=== PATIENT | male | born 1975 | race Caucasian/White ===

== ENCOUNTER → 2017-03-29 | Emergency (ER) | payer MEDICAID ==
[~2017-03-29] VITALS: Ht 188 cm; Wt 108.9 kg
[~2017-03-29] MED LIST: ADVIL200 MG OR; ADVIL200 MG PO; ATIVAN0.5 MG PO; BROMFED DM COU473 ML PO; CIPRO 500MG TA500 MG PO; CLARITIN 10MG T10 MG PO; DOXYCYCLINE HY100 M4 PO; DOXYCYCLINE100 M6 PO; GEMFIBROZIL600 MG PO; IBUPROFEN800 MG PO; LORTAB 5/500 501 TAB PO; MECLIZINE12.5 MG PO; MECLIZINE25 MG PO; MONODOX100 MG PO; NOMEDS; PRILOSEC40 MG PO; TRAMADOL50 M1 PO; ULTRAM50 MG PO
[2017-03-29 10:18] VITALS: BP 135/99
--- NOTE | 2017-03-29 10:27 | Emergency Room Report ---
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 N Clinical Suspician of Infection? N Mental Status: 1 - Regular (Normal Baseline) Sepsis Risk:Low Sepsis Risk Have you (or family members/close friends) recently traveled outside the [place]? N If Yes, where/when: Have you had exposure to infectious disease within the past month? N TB? Other? Specify: Comment The patient complains of a 3 day history of LEFT testicular pain and swelling. He has had this previously. He says he was seen in the emergency room, followed up with his primary care doctor, and was referred to a specialist, presumably a urologist. He was diagnosed with epididymitis. He has had a previous mastectomy and was told that the scar tissue from that would periodically become inflamed. He has exactly the same symptoms now. No fever. No trauma. No difficulty urinating. ALLERGIES Coded Allergies: Penicillins (03/29/17) amoxicillin (03/29/17) Home Medications Active Scripts DOXYCYCLINE HYCLATE (Doxycycline Hyclate) 100 MG PO BID #20 CAP Prov: 12/28/14 Tramadol Hcl (Ultram 50MG) 50 MG PO Q6HP PRN pain #12 TAB Prov: 12/28/14 Reported Medications Omeprazole (Prilosec 40mg Cap) 40 MG PO DAILY Loratadine (Claritin 10MG) 10 MG PO DAILY MECLIZINE HYDROCHLORIDE (Meclizine HCl) 12.5 MG PO BID MISCELLANEOUS (UNKNOWN MEDICATION) 2 TAB PO TIDP PRN CONGESTION/SINUS History Medical History General CAD? No Angina: No MO: No Hypertension? No Hyperlipidemia? No CHF? No COPD? No Asthma? No Anemia? No Hernia? Yes Thyroid Problems? No Hypothyroidism? No CVA? No Seizures? No Diabetes? No End Stage Renal Disease? No UTI? No Stones? No GB Disease: No Nephritic Syndrome? No Asplenia? No Hepatitis? No Sickle Cell Disease? No Arthritis? Yes Cataracts? No Glaucoma? No MRSA? No TB? No Cancer? 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 Physical Exam Vital Signs Vital Signs Date Time Temp Pulse Resp B/P Pulse O2 O2 Flow FiO2 Ox Delivery Rate 03/29 1055 98.4 88 18 135/99 97 03/29 1051 18 03/29 1018 98.4 88 18 135/99 97 General Appearance mild distress Respiratory Status No: respiratory distress. Cardiovascular regular rate/rhythm Male Genitalia tenderness of the LEFT testicle, posterior greater than anterior. Appears in normal position, lie is lower than the RIGHT. Not elevated. No visible or palpable edema or erythema. No hernia. No palpable mass. Neurologic alert Medical Decision Making LABS/Meds/Orders Pt receiving controlled substance in ED? Yes [place] was queried for this patient? No Reason not queried - emergent pt cond=no time Results/Orders Laboratory Tests 03/29/17 1027: Urine Color Cancelled, Urine Appearance Cancelled, Urine pH Cancelled, Ur Specific [place] Cancelled Current Medication Orders Sig/Mary Start time Last Medication Dose Route Stop Time Status Admin Doxycycline Hyclate 0 .STK-MED ONE 03/29 1049 DC PO Ibuprofen 0 .STK-MED ONE 03/29 1048 DC PO Tramadol HCl 0 .STK-MED ONE 03/29 1048 DC .ROUTE Doxycycline Hyclate 100 MG ONCE ONE 03/29 1045 DC 03/29 PO 03/29 1046 1050 Ibuprofen 800 MG ONCE ONE 03/29 104 DC 03/29 PO 03/29 1046 1051 Tramadol HCl 50 MG ONCE ONE 03/29 1045 DC 03/29 PO 03/29 1046 1051 Progress - 10:40 AM: I recommended ultrasound of the testicle to rule out torsion, IV antibiotics, IV pain medication and anti-inflammatories. The patient does not want to spend time in the emergency room, he wants to be discharged as soon as possible to take care of his daughter. He says he has had exactly the same symptoms in the past and is comfortable that it is a recurrence of his previous condition. He does not want a workup. He does not want an IV or injections. He prefers oral medications so that he can be discharged quickly. On his last visit here for this problem in 2014 he was treated with doxycycline and tramadol and he prefers these medications. Departure Departure Disposition DC Home or Self Care(routine) Clinical Impression Primary Impression: Epididymitis Condition STABLE Patient Instructions DI for Epididymitis Additional Instructions Call your primary care physician on Friday to arrange a follow-up appointment. Return to the emergency room if worsening pain, swelling, fevers, or inability to urinate. Prescriptions Current Visit Scripts Doxycycline Hyclate (Vibramycin) 100 MG PO BID #20 CAP TRAMADOL HCL (Tramadol) 50 MG PO Q6HP PRN pain #12 TAB Ibuprofen (Ibuprofen 800MG) 800 MG PO Q8HP PRN pain #15 TAB ED Critical Care Critical Care No at [id number]
--- OUTSIDE RECORDS SUMMARY | 2017-04-04 13:00 | External Medical Summary Rpt | CCD ---
Author Author , ROXANN Organization ROXANN Address Unknown Phone Care Team Providers Care Infant Teacher Name Role Phone TITI HAN, TITI HAN Unavailable Unavailable [facility] ASHWIN ELLIOTT Unavailable Unavailable ASHWIN ELLIOTT Unavailable Unavailable [facility] Unavailable [facility] JIM ALL, JIM ALL Unavailable Unavailable HILL NANDINI, HILL Unavailable Unavailable NANDINI CASE JUS, CASE JUS Unavailable Unavailable [facility], Unavailable Unavailable [facility], Unavailable Unavailable [facility] BELCHER, BELCHER Unavailable Unavailable BELCHER TEDDY, Unavailable Unavailable BELCHER TEDDY JAZZ, JAZZ Unavailable Unavailable JAZZ CAR, JAZZ CAR Unavailable Unavailable ALEXANDRA SAMANTHA, Unavailable Unavailable ALEXANDRA SAMANTHA TEJEDA-RIOS NANDINI, Unavailable Unavailable TEJEDA-RIOS NANDINI [facility] Unavailable Unavailable HOSPITA, [facility] Unavailable Unavailable HOSPITA, [facility], Unavailable Unavailable [facility] DYLAN RHO, DYLAN Unavailable Unavailable [facility] Unavailable Unavailable INC, [facility] QUIGLEY, QUIGLEY Unavailable Unavailable QUIGLEY, QUIGLEY Unavailable Unavailable QUIGLEY DEVON, QUIGLEY DEVON Unavailable Unavailable QUIGLEY DEVON, QUIGLEY DEVON Unavailable Unavailable [facility] Un[facility] Unavailable GROUP PS, [facility] Un[facility] Un[facility] KERN LAR, KERN LAR Unavailable Unavailable KERN LORENA LAR, Unavailable Unavailable ANABEL CARRILLO LAR India Connors MD, Unavailable Unavailable India Connors MD [facility] Unavailable Unavailable PRACTITIONER [facility], [facility] JOSE F ANT, JOSE F ANT Unavailable Unavailable CHAPARRITA BET, CHAPARRITA Unavailable Unavailable BET FERRER GLORIA, FERRER Unavailable Unavailable GLORIA MUGLESTON HARLEY, Unavailable Unavailable [facility]UGLESTON HAR[facility] Un[facility], Unavailable Unavailable [facility], Unavailable Unavailable [facility] MALACHI HEATHER, MALACHI HEATHER Unavailable Unavailable SCALF PAT, SCALF PAT Unavailable Unavailable MARAHY JULIA, SHADREAY Unavailable Unavailable JULIA DREW JULIA, SHADREAY Unavailable Unavailable JULIA GOFF GOFF Unavailable Unavailable GOFF TRISHA, GOFF TRISHA Unavailable Unavailable CONNOR MOULTONELL Unavailable Unavailable OBIE SEPULVEDA, OBIE Unavailable Unavailable COCO VERGARA, Unavailable Unavailable WEI VERGARA [facility] Unavailable Unavailable LLC, [facility] Unavailable Unavailable HOSPITALS, [facility], Unavailable Unavailable [facility] THAD TREJO, THAD Unavailable Unavailable NEIL TREJO, THAD Unavailable Unavailable NEIL ADRIAN II NEIL, NGUYỄN Unavailable Unavailable II NEIL Purpose Continuity of Care Document - 09-10-2012 through 2016 Problems Code Diagnosis DOS Provider Status [id number] BENIGN 02-06-2017 [facility] UNSPECIFIED EAR R270 ATAXIA 02-06-2017 [facility] R42 DIZZINESS 02-06-2017 [place] [facility] G[facility] R51 HEADACHE 02-06-2017 [facility] M792 NEURALGIA 11-19-2016 [facility] NURSE AND PRACTITIONE NEURITIS R GR UNSPECIFIED N432 OTHER 10-29-2016 [facility] [place] [facility] N4340 SPERMATOCEL 10-29-2016 [facility] OF [facility]TI[facility] EPIDIDYMIS HOSPITA UNSPECIFIED N5082 SCROTAL 10-29-2016 [facility] [id number] TESTICULAR 10-08-2016 [facility] NURSE PAIN PRACTITIONE UNSPECIFIED R GR N5089 OTHER 10-08-2016 [facility] NURSE SPECIFIED PRACTITIONE DISORDERS R GR OF MALE GENITAL ORGANS N509 DISORDER OF 10-08-2016 [facility] NURSE MALE PRACTITIONE GENITAL R GR ORGANS UNSPECIFIED R109 UNSPECIFIED 10-08-2016 [facility] NURSE ABDOMINAL PRACTITIONE PAIN R GR T148 OTHER 10-08-2016 [facility] NURSE INJURY OF PRACTITIONE UNSPECIFIED R GR BODY REGION Z789 OTHER 10-08-2016 [facility] NURSE SPECIFIED PRACTITIONE HEALTH R GR STATUS [id number] MIGRAINE 10-02-2016 [place] [facility] NOT SERV INTRACT W/O FOUNDATION STAT MIGRAINOSUS [id number] CHRONIC 10-02-2016 [place] [facility] SERV E HEADACHE FOUNDATION NOT INTRACTABLE H6693 OTITIS 08-22-2016 [facility] NURSE MEDIA PRACTITIONE UNSPECIFIED R GR BILATERAL M542 CERVICALGIA 08-22-2016 [facility] NURSE PRACTITIONE R GR J209 ACUTE 06-27-2016 [facility] NURSE BRONCHITIS PRACTITIONE UNSPECIFIED R GR H524 PRESBYOPIA 06-04-2016 [facility] [id number] OTH 04-03-2016 [place] [facility] SERV NOT INTRACT FOUNDATION W/O STATUS MIGRAINOSUS I10 ESSENTIAL 03-21-2016 [facility] NURSE PRIMARY PRACTITIONE HYPERTENSIO R GR N K219 GASTRO-ESOP 12-28-2015 [facility] NURSE H REFLUX PRACTITIONE DISEASE R GR WITHOUT ESOPHAGITIS N508 OTHER 12-28-2015 [facility] NURSE SPECIFIED PRACTITIONE DISORDERS R GR OF MALE GENITAL ORGANS T26150 PAIN IN 11-06-2015 [facility] R079 CHEST PAIN 11-06-2015 [facility] UNSPECIFIED COMM[facility]TIY HOSPITA [id number] PAIN IN 09-29-2015 [facility] NURSE LEFT UPPER PRACTITIONE ARM R GR L240 IRRITANT 09-05-2015 [facility] NURSE CONTACT PRACTITIONE DERMATITIS R GR DUE TO DETERGENTS J0190 ACUTE 08-01-2015 [facility] NURSE SINUSITIS PRACTITIONE UNSPECIFIED R GR L90230L STRAIN 08-01-2015 [facility] NURSE MUSCLE PRACTITIONE FASCIA & R GR TENDON LOW BACK INITIAL H6093 UNSPECIFIED 05-26-2015 [place] [facility] BILATERAL 99754 ATROPHIC 03-15-2015 [facility] WITHOUT MENTION OF HEMORRHAGE 5781 BLOOD IN 03-15-2015 [place] [address] ABDOMINAL 03-15-2015 [place] PA[facility], ANESTHESIA UNSPECIFIED GROUP PS SITE 13880 OTHER 03-13-2015 [facility] FATIGUE 2662 OTHER 03-01-2015 [facility] NURSE B-COMPLEX PRACTITIONE DEFICIENCIE R GR S 6089 UNSPECIFIED 02-08-2015 [facility] OF MALE GENITAL ORGANS 7804 DIZZINESS 02-08-2015 [facility] V5869 LONG-TERM 02-08-2015 [facility] USE OF OTHER MEDICATIONS 63731 UNSPECIFIED 12-28-2014 ASHWIN Owen ORCHITIS AND EPIDIDYMITI S 15443 EDEMA OF 12-28-2014 [place] [facility] IMAGING ASS ORGANS 09569 OTHER 12-28-2014 [place] SPECIFIED MEDICAL DISORDER OF IMAGING ASS MALE GENITAL ORGANS 3484 COMPRESSION 12-21-2014 [facility] 08485 BENIGN 12-21-2014 [facility] PAROXYSMAL [facility] POSITIONAL MEDICAL [facility] 7820 DISTURBANCE 12-16-2014 [facility] 3674 PRESBYOPIA 12-13-2014 [facility] DEVON 3314 OBSTRUCTIVE 11-29-2014 [facility]DR[facility]EPHAL [facility] 7812 ABNORMALITY 11-29-2014 [facility] V571 OTHER 11-10-2014 [facility] TH[facility] 25259 CHEST PAIN 10-28-2014 [facility] [place] UNSPECIFIED RADIOLOGY 3688 OTHER 09-07-2014 [facility] SPECIFIED [facility]TI[facility] VISUAL HOSPITA DISTURBANCE S 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 7840 HEADACHE 09-07-2014 [facility] 7906 OTHER 09-07-2014 [facility] ABNORMAL COMM[facility]TIY BLOOD HOSPITA CHEMISTRY 3393 DRUG 07-28-2014 [facility] INDUCED NEUROLOGY HEADACHE NOT ELSEWHERE CLASSIFIED 7862 COUGH 07-28-2014 [facility] 4011 ESSENTIAL 07-20-2014 [facility], BENIGN [facility] 4659 ACUTE URIS 05-11-2014 [facility] OF UNSPECIFIED [place] SITE 5718 OTHER 04-11-2014 [facility] NONALCOHOLI C LIVER DISEASE 05659 FLUSHING 04-06-2014 [facility] 32065 ESOPHAGEAL 02-22-2014 THAD NEIL REFLUX 7821 RASH AND 02-11-2014 [facility] NONSPECIFIC SKIN ERUPTION 2721 PURE 01-28-2014 [facility] IDEMIA 4779 ALLERGIC 01-28-2014 [place] [facility] CAUSE [facility] UNSPECIFIED 305.1 305.1 03-12-2013 Rickie TOBACCO USE [facility] 780.4 780.4 03-12-2013 [facility] 786.05 786.05 03-12-2013 [facility] 786.50 786.50 03-12-2013 [place] CHEST PAIN [facility] Allergies, Adverse Reactions, Alerts Type Drug Allergy Adverse Reaction to Substance Substance Reaction Severity Penicillin Unknown Unknown Amoxicillin I-RASH Intermediate Medications Na ND Rx Da Fi Fi Am Da Di Ph RX Ph St me C No te ll ll ou ys ag ar # ys at rm s nt no ma ic us Or Da si cy ia de te s n re d VE 23 08 09 90 30 00 OK Ac RA 15 -2 -2 .0 00 L- ti PA 50 5- 2- 00 07 MA ve OR 02 20 20 50 RT L 60 17 17 59 80 1 28 PH AR MG MA CY TA BL #5 ET 91 AC 00 08 09 60 30 00 OK Ac ET 52 -1 -1 .0 00 L- ti AZ 71 8- 5- 00 07 MA ve OL 05 20 20 50 RT AM 00 17 17 46 ID 1 91 PH E AR 25 MA 0 CY MG #5 TA 91 BL ET OM 60 08 09 30 30 00 OK Ac EP 50 -1 -0 .0 00 L- ti RA 50 5- 8- 00 07 MA ve ZO 14 20 20 47 RT LE 60 17 [address] AR MA 40 CY MG #5 91 CA PS UL E OM 60 07 08 30 30 00 OK Ac EP 50 -1 -1 .0 00 L- ti RA 50 4- 1- 00 07 MA ve ZO 14 20 20 47 RT LE 60 17 [address] AR MA 40 CY MG #5 91 CA PS UL E OM 60 06 07 30 30 00 OK Ac EP 50 -1 -1 .0 00 L- ti RA 50 6- 4- 00 07 MA ve ZO 14 20 20 47 RT LE 60 17 [address] AR MA 40 CY MG #5 91 CA PS UL E AM 16 05 06 30 30 00 OK Ac IT 72 -3 -2 .0 00 L- ti RI 90 0- 3- 00 07 MA ve PT 17 20 20 49 RT YL 21 17 17 05 IN 7 90 PH E AR HC MA L CY 25 #5 MG 91 TA B OM 60 05 06 30 30 00 OK Ac EP 50 -1 -0 .0 00 L- ti RA 50 6- 9- 00 07 MA ve ZO 14 20 20 47 RT LE 60 17 [address] AR MA 40 CY MG #5 91 CA PS UL E CY 68 04 05 90 30 00 OK Ac CL 64 -1 -1 .0 00 L- ti OB 50 8- 2- 00 07 MA ve EN 51 20 20 48 RT ZA 89 17 17 30 NC 0 29 PH IN AR E MA 10 CY MG #5 91 TA BL ET VE 00 04 05 60 30 00 OK Ac RA 59 -1 -1 .0 00 L- ti PA 12 3- 2- 00 07 MA ve OR 88 20 20 48 RT L 00 17 17 20 SR 1 06 PH AR 12 MA 0 CY MG #5 CA 91 PS UL E OM 60 04 05 30 30 00 OK Ac EP 50 -1 -1 .0 00 L- ti RA 50 7- 2- 00 07 MA ve ZO 14 20 20 47 RT LE 60 17 [address] AR MA 40 CY MG #5 91 CA PS UL E OM 60 03 04 30 30 00 OK Ac EP 50 -1 -1 .0 00 L- ti RA 50 7- 4- 00 07 MA ve ZO 14 20 20 47 RT LE 60 17 [address] AR MA 40 CY MG #5 91 CA PS UL E ON 57 03 04 15 5 00 OK Ac DA 23 -1 -1 .0 00 L- ti NS 70 6- 4- 00 07 MA ve ET 07 20 20 47 RT RO 71 17 17 67 N 0 43 PH OD AR T MA 4 CY MG #5 TA 91 BL ET AZ 59 03 03 6. 5 00 OK Ac IT 76 -0 -3 00 00 L- ti HR 23 2- 1- 0 07 MA ve OM 06 20 20 47 RT YC 00 17 17 38 IN 1 95 PH AR 25 MA 0 CY MG #5 TA 91 BL ET OM 60 02 03 30 30 00 OK Ac EP 50 -1 -1 .0 00 L- ti RA 50 6- 7- 00 07 MA ve ZO 14 20 20 44 RT LE 60 17 [address] AR MA 40 CY MG #5 91 CA PS UL E ZO 00 01 02 12 30 00 OK Ac NI 37 -2 -2 0. 00 L- ti SA 86 7- 4- 00 07 MA ve OR 72 20 20 0 46 RT DE 50 17 17 72 1 79 PH 25 AR MA MG CY CA #5 PS 91 UL E OM 60 01 02 30 30 00 OK Ac EP 50 -1 -1 .0 00 L- ti RA 50 5- 0- 00 07 MA ve ZO 14 20 20 44 RT LE 60 17 [address] AR MA 40 CY MG #5 91 CA PS UL E AZ 59 01 02 6. 5 00 WA Ac IT 76 -0 -0 00 00 L- ti HR 23 6- 3- 0 07 MA ve OM 06 20 20 46 RT YC 00 17 17 30 IN 1 49 PH AR 25 MA 0 CY MG #5 TA 91 BL ET CE 68 01 02 20 10 00 OK Ac FD 18 -0 -0 .0 00 L- ti IN 00 5- 3- 00 07 MA ve IR 71 20 20 46 RT 16 17 17 27 30 0 65 PH 0 AR MG MA CY CA PS #5 UL 91 E OM 57 12 01 30 30 00 OK Ac EP 23 -1 -1 .0 00 L- ti RA 70 7- 3- 00 07 MA ve ZO 16 20 20 44 RT LE 23 16 [address] AR MA 40 CY MG #5 91 CA PS UL E DO 57 12 01 20 10 00 OK Ac XY 23 -0 -0 .0 00 L- ti CY 70 8- 9- 00 07 MA ve CL 10 20 20 45 RT IN 50 16 17 73 E 1 54 PH HY AR CL MA AT CY E 10 #5 0 91 MG TA B NC 00 12 01 10 5 00 OK Ac ED 14 -0 -0 .0 00 L- ti NI 39 8- 9- 00 07 MA ve SO 73 20 20 45 RT NE 80 16 17 73 5 55 PH 20 AR MA MG CY TA #5 BL 91 ET VE 00 12 01 18 17 00 OK Ac NT 17 -0 -0 .0 00 L- ti OL 30 8- 9- 00 07 MA ve IN 68 20 20 45 RT 22 16 17 73 HF 0 59 PH A AR 90 MA CY MC G #5 IN 91 [place] LE R Vital Signs 03-12-2013 23:09 Name Value Interpretat Reference Comment ion Range BP 94 mm[Hg] Diastolic BP Systolic 133 mm[Hg] Heart 74 /min Rate/Pulse O2% 97 % Respiratory 20 /min Rate 09-10-2012 04:56 Name Value Interpretat Reference Comment ion Range BP 100 mm[Hg] Diastolic BP Systolic 146 mm[Hg] Heart 81 /min Rate/Pulse O2% 97 % Respiratory 20 /min Rate 09-10-2012 04:30 Name Value Interpretat Reference Comment ion Range BP 99 mm[Hg] Diastolic BP Systolic 144 mm[Hg] Heart 80 /min Rate/Pulse O2% 97 % Respiratory 20 /min Rate Results Labs Lab Lab Date Result Refere Interp Status Commen Order Detail nces retati t Range on BASIC METABOLIC PANEL (09-10-2012 04:00) Glucose 111 74-106 complet 013 mg/dL ed Bld-mCn 04:00 c BUN 14 7-18 complet Bld-mCn 013 mg/dL ed c 04:00 Creat 1.3 0.8-1.3 complet SerPl-m 013 mg/dL ed Cnc 04:00 ESTIMAT 117 50-200 complet ED 013 ML/MIN ed CREATIN 04:00 INE CLEARAN CE GFR 63 Greater complet (ESTIMA 013 ML/MIN than ed REYMUNDO) 04:00 60 Sodium 138 136-145 complet SerPl-s 013 mmoL/L ed Cnc 04:00 Potassi 3.7 3.5-5.1 complet um 013 mmoL/L ed SerPl-s 04:00 Cnc Chlorid 103 98-107 complet e 013 mmoL/L ed SerPl-s 04:00 Cnc CO2 27 21.0-32 complet SerPl-s 013 mmoL/L .0 ed Cnc 04:00 Calcium 8.5 8.5-10. complet 013 mg/dL 1 ed SerPl-m 04:00 Cnc CBC with AUTO DIFF (09-10-2012 04:00) WBC # 09-10-2 8.4 4.8-10. complet Bld 013 K/MM3 8 ed Auto 04:00 RBC # 09-10-2 5.92 4.6-6.2 complet Bld 013 M/mm3 ed Auto 04:00 Hgb 17.3 14.1-18 complet Bld-mCn 013 g/dL .0 ed c 04:00 Hct Fr 51.4 % 42.0-52 complet Bld 013 .0 ed 04:00 MCV RBC 86.9 fl 82.2-97 complet 013 .8 ed 04:00 MCH RBC 29.2 pg 27-31.2 complet Qn 013 ed Auto 04:00 MEAN 2 33.6 31.8-35 complet CORPUSC 013 g/dl .4 ed ULAR 04:00 HGB CONC RDW RBC 2 13.5 % 11.5-17 complet Auto 013 .5 ed 04:00 Platele 09-10-2 312 142-424 complet t Bld 013 K/mm3 ed Ql 04:00 Manual MEAN 7.7 fl 7.4-10. complet PLATELE 013 4 ed T 04:00 VOLUME Granulo 09-10-2 47.1 % 37.0-80 complet cytes 013 .0 ed Fr Bld 04:00 Auto LYMPH % 09-10-2 38.2 % 10-50 complet 013 ed 04:00 Monocyt 09-10-2 9.1 % 1.7-9.3 complet es Fr 013 ed Bld 04:00 Auto Eosinop 09-10-2 4.8 % 0.1-12. complet hil Fr 013 0 ed Bld 04:00 Auto Basophi 09-10-2 0.8 % 0.1-2.0 complet ls Fr 013 ed Bld 04:00 Auto Granulo 09-10-2 4.0 1.3-8.0 complet cytes # 013 K/mm3 ed Bld 04:00 Auto Lymphoc 21-2 3.2 0.7-4.5 complet ytes Fr 013 K/mm3 ed Bld 04:00 Auto Monocyt 21-2 0.8 0.1-1.0 complet es # 013 K/mm3 ed Bld 04:00 Auto Eosinop 21-2 0.4 0.0-0.4 complet hil # 013 K/mm3 ed Bld 04:00 Auto Basophi 21-2 0.1 0-0.2 complet ls # 013 K/MM3 ed Bld 04:00 Auto Procedures Procedure DOS Code Location Performer Comment 55053 [facility] SCROTUM & 7 N N CONTENTS COMMUNTIY COMMUNTIY HOSPITA HOSPITA OPH 78564 [facility] 6 XM&EVAL COMPRHNSV ESTAB PT 1/> BINOCULAR 40382 [facility] MEDICAL BET MICROSCOP SERV Y FOUNDATIO SEPARATE N DX PROCEDURE CV STRS 06289 [facility] TST 6 N COCO XERS&/OR CARDIOLOG RX CONT Y ECG W/O I&R CV STRS 61047 [facility] TST 6 N N XERS&/OR COMMUNTIY COMMUNTIY RX CONT HOSPITA HOSPITA ECG TRCG ONLY CV STRS 96528 [facility] TST 6 N COCO XERS&/OR CARDIOLOG RX CONT Y ECG I&R ONLY RADIOLOGI 20322 [facility] C 6 N N EXAMINATI COMMUNTIY COMMUNTIY ON KNEE 3 HOSPITA HOSPITA VIEWS ECG 45819 [facility] ROUTINE 6 NURSE TEDDY ECG PRACTITIO W/LEAST NER GR 12 LDS W/I&R EGD 99199 GASTROENT CASE JUS TRANSORAL 5 EROLOGY BIOPSY AND SINGLE/[place] [address] [facility], SURG 5 [facility] PATHOLOGY GROSS&LEONIDES ROSCOPIC EXAM COLONOSCO 91229 GASTROENT CASE JUS PY FLX DX 5 EROLOGY W/COLLJ AND SPEC WHEN HEPATOL PFRMD ANES 33577 [place] JOSE F ANT LOWER 5 ANESTHESI INTESTINE A GROUP PS ENDOSCOPY DISTAL DUODENUM CYANOCOBA 39457 [facility] [place] [place] 5 Y [place] [address] THERAPEUT 59827 [facility] IC 5 NURSE NURSE PROPHYLAC PRACTITIO PRACTITIO TIC/DX NER GR NER GR INJECTION SUBQ/IM [place] [address] [place] IC 5 MEDICAL MEDICAL PROPHYLAC SERV SERV TIC/DX FOUNDATIO FOUNDATIO INJECTION N N SUBQ/IM THERAPEUT 50858 [facility] [place] IC 5 MEDICAL NANDINI PROPHYLAC SERV TIC/DX FOUNDATIO INJECTION N SUBQ/IM THERAPEUT 83631 [facility] IC 5 NURSE NURSE PROPHYLAC PRACTITIO PRACTITIO TIC/DX NER GR NER GR INJECTION SUBQ/IM CYANOCOBA 49216 [facility] [place] 5 Y Y [place] [address] LIPID 18972 [facility] PANEL 5 Y Y [facility] HEMOGLOBI [address] [facility] UNIVERS N 5 Y Y GLYCOSYLA [facility] REYMUNDO A1C BLOOD 37366 [facility] COUNT 5 Y Y COMPLETE [facility] AUTO&AUTO DIFRNTL WBC BASIC 21753 [facility] METABOLIC 5 Y Y PANEL [facility] CALCIUM TOTAL SEDIMENTA 94955 [facility] TION RATE 5 Y Y RBC [facility] [place] [place] [address] [facility] THYROID 5 Y Y STIMULATI [facility] [place] [address] [place] JIM ALL ABDOMEN & 5 MEDICAL PELVIS IMAGING [place] [address] [place] JIM ALL SCROTUM & 5 MEDICAL CONTENTS IMAGING ASS NEEDLE 27531 [facility] EMG EA 5 HEALTH JAI EXTREMTY MEDICAL W/PARASPI GROUP NL AREA COMPLETE NERVE 09503 [facility] CONDUCTIO 5 HEALTH JAI N STUDIES MEDICAL 5-6 GROUP STUDIES OPHTH 23379 [facility] 5 XM&EVAL COMPRHNSV ESTAB PT 1/> MRI BRAIN 43900 [facility] BRAIN 5 [facility] STEM W/[place] [address] [facility] FOLIC 5 [facility] [place] [address] [facility] FREE 5 [facility] [place] [address] [facility] THYROID 5 [facility] STIMULATI HOSP HOSP NG HORMONE TSH COLLECTIO 79767 [facility] N VENOUS 5 [facility] CONGREGATION BLOOD HOSP HOSP VENIPUNCT URE HEMOGLOBI 02563 [facility] N 5 CON[facility] CONGREGATION GLYCOSYLA HOSP HOSP REYMUNDO A1C CYANOCOBA 03314 [facility] VARUN 5 [facility] VITAMIN HOSP HOSP B-12 PHYSICAL 46185 [facility] THERAPY 5 MEM [place] [place] [address] [facility] HEAD/BRAI 5 N N N W/O COMMUNTIY COMMUNTIY CONTRAST HOSPITA HOSPITA MATERIAL RADIOLOGI 06852 [facility] [place] DYL[place] C 5 RADIOLOGY RHO EXAMINATI ON CHEST SINGLE VIEW FRONTAL INJECTION A9579 [facility] 5 N N GADOLINIU COMMUNTIY COMMUNTIY M BASED HOSPITA HOSPITA MR CONTRAST NOS ML MRI BRAIN 70948 [facility] [place] SCALF PAT BRAIN 5 RADIOLOGY STEM W/O W/CONTRAS T MATERIAL RADIOLOGI 21132 [facility] C EXAM 5 N N CHEST 2 COMMUNTIY COMMUNTIY VIEWS HOSPITA HOSPITA FRONTAL&[place] [address] [facility] ALDOSTERO 4 N N NE [facility] [address] [facility] TESTOSTER 4 N N ONE TOTAL [facility] HOSPITA METANEPHR 92595 [facility] MICHA 4 N N [facility] HOSPITA COLLECTIO 81137 [facility] N VENOUS 4 N N BLOOD [facility] VENIPUNCT HOSPITA HOSPITA URE CATECHOLA 21512 [facility] MINE 4 N N FRACTIONA [facility] REYMUNDO HOSPITA HOSPITA CORTISOL 82206 [facility] FREE 4 N N [facility] [address] [facility] VANILLYLM 4 N N ANDELIC [facility] ACID HOSPITA HOSPITA URINE RADIOLOGI 78104 [place] ALEXANDRA C EXAM 4 MEDICAL SAMANTHA CHEST 2 IMAGING VIEWS ASS FRONTAL&L ATERAL METANEPHR 35502 [facility] MICHA 4 DIAGNOSTI DIAGNOSTI CS CS PHYSICAL 10023 [facility] THERAPY 4 N N EVALUATIO [facility] [address] [facility] ABDOMINAL 4 [facility] REAL HOSP HOSP TIME W/IMAGE DOCUMENTA TION BLOOD 48418 [facility] COUNT 4 DIAGNOSTI DIAGNOSTI COMPLETE CS CS AUTO&[place] [address] QUEST QUEST LIPASE 4 DIAGNOSTI DIAGNOSTI CS CS COMPREHEN 49250 QUEST QUEST SIVE 4 DIAGNOSTI DIAGNOST[place] [address] QUEST QUEST AMYLASE 4 DIAGNOSTI DIAGNOSTI CS CS ACUTE 79258 QUEST QUEST HEPATITIS 4 DIAGNOSTI DIAGNOSTI PANEL CS CS PURE TONE 07328 DREW RUSSELL 4 JULIA DUMONT AUDIOMETR Y AIR ONLY SPEECH 23643 DREW RUSSELL AUDIOMETR 4 JULIA DUMONT Y THRESHOLD SPEECH RECOGNIJ CALORIC 89138 DREW RUSSELL VESTIBULA 4 JULIA DUMONT R TEST EA IRRIGATIO N W/RECORD SPONTANEO 18201 DREW RUSSELL US 4 JULIA DUMONT NYSTAGMUS TEST LARYNGOSC 14110 THAD ONEIL OPY 4 NEIL NEIL FLEXIBLE DIAGNOSTI C ANTIBODY 01687 QUEST QUEST HERPES 4 DIAGNOSTI DIAGNOSTI SMPLX CS CS TYPE 1 ANTIBODY 38823 QUEST QUEST HERPES 4 DIAGNOSTI DIAGNOSTI SMPLX CS CS TYPE 2 [place] [address] QUEST QUEST THYROID 4 DIAGNOSTI DIAGNOSTI STIMULATI CS CS NG HORMONE TSH COMPREHEN 23678 QUEST QUEST SIVE 4 DIAGNOSTI DIAGNOSTI METABOLIC CS CS PANEL LIPID 33522 QUEST QUEST PANEL 4 DIAGNOSTI DIAGNOSTI CS CS BLOOD 75491 QUEST QUEST COUNT 4 DIAGNOSTI DIAGNOSTI COMPLETE CS CS AUTOMATED HEMOGLOBI 42450 QUEST QUEST N 4 DIAGNOSTI DIAGNOSTI GLYCOSYLA CS CS REYMUNDO A1C Encounters Encounter Start End Date Code Location Performer Type Date OFFICE 76285 [facility] GOFF OUTPATIEN 7 7 MEDICAL T VISIT SERV 25 FOUNDATIO MINUTES [facility] - 7 7 HEALTHCAR OUTPATIEN E T HOSPITALS OFFICE 60538 OUTPATIEN 7 7 HEALTHCAR T VISIT 5 E MINUTES HOSPITALS OFFICE 01814 [facility] OUTPATIEN 7 7 NURSE T VISIT PRACTITIO 25 NER GR MINUTES HOSPITAL [facility] - 7 7 N OUTPATIEN COMMUNTIY T HOSPITA OFFICE 79424 [facility] CONSULTAT 7 7 [employer] ION NEW/ESTAB PATIENT 40 MIN OFFICE 80268 [facility] JAZZ OUTPATIEN 7 7 NURSE T VISIT PRACTITIO 25 NER GR MINUTES OFFICE 30580 [place] GOFF OUTPATIEN 7 7 MEDICAL T VISIT SERV 25 FOUNDATIO MINUTES N OFFICE 17063 [facility] JAZZ OUTPATIEN 7 7 NURSE T VISIT PRACTITIO 25 NER GR MINUTES OFFICE 43950 [facility] OUTPATIEN 7 7 NURSE T VISIT PRACTITIO 15 NER GR MINUTES OFFICE 28977 [place] [facility]ERN OUTPATIEN 6 6 MEDICAL HUFNAGEL T VISIT SERV LAR 15 FOUNDATIO MINUTES N OFFICE 46362 [facility] OUTPATIEN 6 6 NURSE TEDDY T VISIT PRACTITIO 15 NER GR MINUTES OFFICE 06735 [place] CHAPARRITA OUTPATIEN 6 6 MEDICAL BET T NEW 30 SERV MINUTES FOUNDATIO N OFFICE 56480 [facility] OUTPATIEN 6 6 NURSE TEDDY T VISIT PRACTITIO 15 NER GR MINUTES OFFICE 08876 [facility]ER OUTPATIEN 6 6 NURSE TEDDY T VISIT PRACTITIO 15 NER GR MINUTES OFFICE 23252 EAR, NOSE THAD OUTPATIEN 6 6 AND NEIL T VISIT THROAT 25 SPECIAL MINUTES OFFICE 24471 [facility] OUTPATIEN 6 6 NURSE TEDDY T VISIT PRACTITIO 15 NER GR MINUTES OFFICE 18964 [facility] OUTPATIEN 6 6 NURSE TEDDY T VISIT PRACTITIO 15 NER GR MINUTES HOSPITAL [facility] - 6 6 N OUTPATIEN COMMUNTIY T HOSPITA OFFICE 38474 [facility] BELCHER OUTPATIEN 6 6 NURSE TEDDY T VISIT PRACTITIO 15 NER GR MINUTES OFFICE 36332 [facility] JAZZ CAR OUTPATIEN 6 6 NURSE T VISIT PRACTITIO 15 NER GR MINUTES OFFICE 94035 [facility] JAZZ CAR OUTPATIEN 6 6 NURSE T VISIT PRACTITIO 15 NER GR MINUTES OFFICE 17603 [facility] JAZZ CAR OUTPATIEN 6 6 NURSE T VISIT PRACTITIO 15 NER GR MINUTES OFFICE 95769 [facility] BELCHER OUTPATIEN 6 6 NURSE T VISIT PRACTITIO 15 NER GR MINUTES OFFICE 37109 [place] ANABEL LAR OUTPATIEN 5 5 MEDICAL T VISIT SERV 15 FOUNDATIO MINUTES N OFFICE 74433 [facility] BELCHER OUTPATIEN 5 5 NURSE TEDDY T VISIT PRACTITIO 15 NER GR MINUTES HOSPITAL UNIVERSIT - 5 5 Y [facility] T OFFICE 96750 GASTROENT CASE JUS CONSULTAT 5 5 EROLOGY ION AND NEW/ESTAB HEPATOL PATIENT 60 MIN OFFICE 87229 [facility] NURSE TEDDY T VISIT PRACTITIO 25 NER GR MINUTES HOSPITAL UNIVERSIT - 5 5 Y [facility] T EMERGENCY 93264 ASHWIN Owen 5 5 DEPARTMEN T VISIT HIGH/URGE NT SEVERITY OFFICE 07349 [facility] T VISIT MEDICAL 15 GROUP MINUTES OFFICE 31796 [facility] 5 5 NURSE TEDDY T VISIT PRACTITIO 15 NER GR MINUTES [facility]OSPITAL [facility] 93836 RUTH ADRIAN II CONSULTAT 5 5 [facility] MADDIE HU MD NEW/ESTAB PATIENT 60 MIN HOSPITAL STANDARD - 5 5 CONGREGATION OUTPATIEN HOSP T OFFICE 46133 CONGREGATION NABIL OUTPATIEN 5 5 HEALTH GLORIA T NEW 45 MEDICAL MINUTES [facility] RICK[facility] - 5 5 [facility]133 KMS BELCHER OUTPATIEN 5 5 NURSE TEDDY T VISIT PRACTITIO 15 NER GR [facility] [place] [address] 5 N [facility] 93332 CAROLGIOVANNA GOFF TRISHA CONSULTAT 5 5 N ION NEUROLOGY NEW/ESTAB PATIENT 60 MIN [facility] 03365 ARIA ROMERO OUTPATIEN 5 5 RENAL T VISIT CARE PSC 25 MINUTES [facility] - 4 4 N OUTPATIEN [facility] 4 4 N [facility]PITA [facility] 73472 [facility] FUENTESA [facility]PATIEN 4 4 RENAL T NEW 60 CARE PSC MINUTES EMERGENCY 86555 [facility] 4 [facility] T VIS[facility] HIGH/URGE NT SEVERITY HOSPITAL [facility] - 4 4 N OUTPATIEN [facility] T HOSPITA OFFICE 80823 KARRI SHORT OUTPATIEN 4 4 MEDICAL T VISIT SERV 25 FOUNDATIO MINUTES N OFFICE 49887 THAD ONEIL CONSULTAT 4 4 NEIL HU NEW/ESTAB PATIENT 40 MIN OFFICE 72772 KARRI RICE OUTPATIEN 4 4 MEDICAL KIN NANDINI T VISIT SERV 25 FOUNDATIO MINUTES N OFFICE 12451 [place] TEJEDA-RAN OUTPATIEN 4 4 MEDICAL ALESSANDRA Sanders NEW 45 SERV MINUTES FOUNDATIO N Emergency PRASANTH Connors MD (ER) 3 21:33 3 23:09 [facility] Emergency PRASANTH Barragan MD (ER) 3 04:03 3 04:58 [facility]
--- OUTSIDE RECORDS SUMMARY | 2017-04-04 13:00 | External Medical Summary Rpt | CCD ---
Author Author , ROXANN Organization ROXANN Address Unknown Phone Care Team Providers Care Burglar Alarm Inspector Name Role Phone TITI HAN, TITI HAN Unavailable Unavailable [facility] Unavailable Unavailable [facility], [facility] ASHWIN ELLIOTT Unavailable Unavailable ASHWIN ELLIOTT Unavailable Unavailable [facility] Unavailable Unavailable [facility], [facility] JIM ALL, JIM ALL Unavailable Unavailable HILL NANDINI, HILL Unavailable Unavailable NANDINI CASE JUS, CASE JUS Unavailable Unavailable [facility], Unavailable Unavailable [facility], Unavailable Unavailable [facility] BELCHER, BELCHER Unavailable Unavailable BELCHER TEDDY, Unavailable Unavailable BELCHER TEDDY JAZZ, JAZZ Unavailable Unavailable JAZZ CAR, JAZZ CAR Unavailable Unavailable ALEXANDRA SAMANTHA, Unavailable Unavailable ALEXANDRA SAMANTHA TEJEDA-RIOS NANDINI, Unavailable Unavailable TEJEDA-RIOS NANDINI [facility] Unavailable Unavailable [facility], [facility] Unavailable Unavailable HOSPITA, [facility], Unavailable Unavailable [facility] DYLAN RHO, DYLAN Unavailable Unavailable RHO [facility] Unavailable Unavailable INC, [facility] QUIGLEY, QUIGLEY Unavailable Unavailable QUIGLEY, QUIGLEY Unavailable Unavailable QUIGLEY DEVON, QUIGLEY DEVON Unavailable Unavailable QUIGLEY DEVON, QUIGLEY DEVON Unavailable Unavailable [facility] Unavailable Unavailable GROUP PS, [facility] Un[facility] Unavailable [facility], [facility] KERN LAR, KERN LAR Unavailable Unavailable KERN LORENA LAR, Unavailable Unavailable ANABEL CARRILLO LAR India Connors MD, Unavailable Unavailable India Connors MD [facility] Unavailable Unavailable PRACTITIONER [facility], [facility] JOSE F ANT, JOSE [...] Unavailable COCO VERGARA, Unavailable Unavailable WEI VERGARA [facility] Unavailable Unavailable LLC, [facility] Unavailable Unavailable HOSPITALS, [facility], Unavailable Unavailable [facility] THAD TREJO, THAD Unavailable Unavailable NEIL TREJO, THAD Unavailable Unavailable NEIL ADRIAN II NEIL, NGUYỄN Unavailable Unavailable II NEIL Purpose Continuity of Care Document - 09-10-2012 through 2016 Problems Code Diagnosis DOS Provider Status [id number] BENIGN 02-06-2017 [facility] UNSPECIFIED EAR R270 ATAXIA 02-06-2017 [facility] R42 DIZZINESS 02-06-2017 [facility] R51 HEADACHE 02-06-2017 [facility] M792 NEURALGIA 11-19-2016 [facility] NURSE AND PRACTITIONE NEURITIS R GR UNSPECIFIED N432 OTHER 10-29-2016 [facility] N4340 SPERMATOCEL 10-29-2016 [facility] EPIDIDYMIS HOSPITA UNSPECIFIED N5082 SCROTAL 10-29-2016 [facility] Y44249 TESTICULAR 10-08-2016 [facility] NURSE PAIN PRACTITIONE UNSPECIFIED R GR N5089 OTHER 10-08-2016 [facility] NURSE SPECIFIED PRACTITIONE DISORDERS R GR OF MALE GENITAL ORGANS N509 DISORDER OF 10-08-2016 [facility] NURSE MALE PRACTITIONE GENITAL R GR ORGANS UNSPECIFIED R109 UNSPECIFIED 10-08-2016 [facility] NURSE ABDOMINAL PRACTITIONE PAIN R GR T148 OTHER 10-08-2016 [facility] NURSE INJURY OF PRACTITIONE UNSPECIFIED R GR BODY REGION Z789 OTHER 10-08-2016 [facility] NURSE SPECIFIED PRACTITIONE HEALTH R GR STATUS H82077 MIGRAINE 10-02-2016 [place] [facility] NOT SERV INTRACT W/O FOUNDATION STAT MIGRAINOSUS Y44034 CHRONIC 10-02-2016 [place] [facility]-TYP SERV E HEADACHE FOUNDATION NOT INTRACTABLE H6693 OTITIS 08-22-2016 [facility] NURSE MEDIA PRACTITIONE UNSPECIFIED R GR BILATERAL M542 CERVICALGIA 08-22-2016 [facility] NURSE PRACTITIONE R GR J209 ACUTE 06-27-2016 [facility] NURSE BRONCHITIS PRACTITIONE UNSPECIFIED R GR H524 PRESBYOPIA 06-04-2016 [facility] H40298 OTH 04-03-2016 [place] [facility] [place] SERV NOT INTRACT FOUNDATION W/O STATUS MIGRAINOSUS I10 ESSENTIAL 03-21-2016 [facility] NURSE PRIMARY PRACTITIONE HYPERTENSIO R GR N K219 GASTRO-ESOP 12-28-2015 [facility] NURSE H REFLUX PRACTITIONE DISEASE R GR WITHOUT ESOPHAGITIS N508 OTHER 12-28-2015 [facility] NURSE SPECIFIED PRACTITIONE DISORDERS R GR OF MALE GENITAL ORGANS [id number] PAIN IN 11-06-2015 [facility]EE [facility] R079 CHEST PAIN 11-06-2015 [facility] UNSPECIFIED [facility]Y HOSPITA H84471 PAIN IN 09-29-2015 [facility] NURSE LEFT UPPER PRACTITIONE ARM R GR L240 IRRITANT 09-05-2015 [facility] NURSE CONTACT PRACTITIONE DERMATITIS R GR DUE TO DETERGENTS J0190 ACUTE 08-01-2015 [facility] NURSE SINUSITIS PRACTITIONE UNSPECIFIED R GR M53620E STRAIN 08-01-2015 [facility] NURSE MUSCLE PRACTITIONE FASCIA & R GR TENDON LOW BACK INITIAL H6093 UNSPECIFIED 05-26-2015 [place] [facility] BILATERAL 02579 ATROPHIC 03-15-2015 [facility] WITHOUT MENTION OF HEMORRHAGE 5781 BLOOD IN 03-15-2015 [place] [address] ABDOMINAL 03-15-2015 [facility] [place] [facility], [facility]ESIA UNSPECIFIED GROUP PS SITE 51466 OTHER 03-13-2015 [facility] FAT[facility] 2662 OTHER 03-01-2015 [facility] NURSE B-COMPLEX PRACTITIONE DEFICIENCIE R GR S 6089 UNSPECIFIED 02-08-2015 [facility] OF MALE GENITAL ORGANS 7804 DIZZINESS 02-08-2015 [facility] ALICE V5869 LONG-TERM 02-08-2015 [facility] USE OF OTHER MEDICATIONS 82587 UNSPECIFIED 12-28-2014 ASHWIN Owen ORCHITIS AND EPIDIDYMITI S 99261 EDEMA OF 12-28-2014 [facility] [place] ORGANS 04812 OTHER 12-28-2014 [facility] [place] SPECIFIED [facility]ICAL DISORDER OF IMAGING ASS MALE GENITAL ORGANS 3484 COMPRESSION 12-21-2014 [facility] 13972 BENIGN 12-21-2014 [facility] POSITIONAL MEDICAL [facility] 7820 DISTURBANCE 12-16-2014 [facility] 3674 PRESBYOPIA 12-13-2014 QU[facility] DEVON 3314 OBSTRUCTIVE 11-29-2014 [facility]DR[facility]PHAL [facility]P 7812 ABNORMALITY 11-29-2014 [facility] V571 OTHER 11-10-2014 [facility] 00598 CHEST PAIN 10-28-2014 [facility] [place] U[facility]PECIF[facility] RADIOLOGY 3688 OTHER 09-07-2014 [facility] SPECIFIED [facility]TIY VISUAL HOSPITA DISTURBANCE S 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 SITE 5718 OTHER 04-11-2014 [facility] NONALCOHOLI C LIVER DISEASE 44377 FLUSHING 04-06-2014 [facility] 82858 ESOPHAGEAL 02-22-2014 THAD NEIL REFLUX 7821 RASH AND 02-11-2014 [facility] OTHER [facility]AGNO[facility]ICS NONSPECIFIC SKIN ERUPTION 2721 PURE 01-28-2014 [facility]ER [facility] IDEMIA 4779 ALLERGIC 01-28-2014 [place] [facility] RH[facility] CAUSE [facility] UNSPECIFIED 305.1 305.1 03-12-2013 Rickie TOBACCO USE [facility] 780.4 780.4 03-12-2013 Rickie [facility] 786.05 786.05 03-12-2013 [facility] 786.50 786.50 03-12-2013 Holden CHEST PAIN [facility] Allergies, Adverse Reactions, Alerts Type Drug [...] VE 23 08 09 90 30 00 NM Ac RA 15 -2 -2 .0 00 L- ti PA 50 5- 2- 00 07 MA ve TN 02 20 20 50 RT L 60 17 17 59 80 1 28 PH AR MG MA CY TA BL #5 ET 91 AC 00 08 09 60 30 00 NM Ac ET 52 -1 -1 .0 00 L- ti AZ 71 8- 5- 00 07 MA ve OL 05 20 20 50 RT AM 00 17 17 46 ID 1 91 PH E AR 25 MA 0 CY MG #5 TA 91 BL ET OM 60 08 09 30 30 00 NM Ac EP 50 -1 -0 .0 00 L- ti RA 50 5- 8- 00 07 MA ve ZO 14 20 20 47 RT LE 60 17 [address] AR MA 40 CY MG #5 91 CA PS UL E OM 60 07 08 30 30 00 NM Ac EP 50 -1 -1 .0 00 L- ti RA 50 4- 1- 00 07 MA ve ZO 14 20 20 47 RT LE 60 17 [address] AR MA 40 CY MG #5 91 CA PS UL E OM 60 06 07 30 30 00 NM Ac EP 50 -1 -1 .0 00 L- ti RA 50 6- 4- 00 07 MA ve ZO 14 20 20 47 RT LE 60 17 [address] AR MA 40 CY MG #5 91 CA PS UL E AM 16 05 06 30 30 00 NM Ac IT 72 -3 -2 .0 00 L- ti RI 90 0- 3- 00 07 MA ve PT 17 20 20 49 RT YL 21 17 17 05 IN 7 90 PH E AR HC MA L CY 25 #5 MG 91 TA B OM 60 05 06 30 30 00 NM Ac EP 50 -1 -0 .0 00 L- ti RA 50 6- 9- 00 07 MA ve ZO 14 20 20 47 RT LE 60 17 [address] AR MA 40 CY MG #5 91 CA PS UL E CY 68 04 05 90 30 00 NM Ac CL 64 -1 -1 .0 00 L- ti OB 50 8- 2- 00 07 MA ve EN 51 20 20 48 RT ZA 89 17 17 30 VA 0 29 PH IN AR E MA 10 CY MG #5 91 TA BL ET VE 00 04 05 60 30 00 NM Ac RA 59 -1 -1 .0 00 L- ti PA 12 3- 2- 00 07 MA ve TN 88 20 20 48 RT L 00 17 17 20 SR 1 06 PH AR 12 MA 0 CY MG #5 CA 91 PS UL E OM 60 04 05 30 30 00 NM Ac EP 50 -1 -1 .0 00 L- ti RA 50 7- 2- 00 07 MA ve ZO 14 20 20 47 RT LE 60 17 [address] AR MA 40 CY MG #5 91 CA PS UL E OM 60 03 04 30 30 00 NM Ac EP 50 -1 -1 .0 00 L- ti RA 50 7- 4- 00 07 MA ve ZO 14 20 20 47 RT LE 60 17 [address] AR MA 40 CY MG #5 91 CA PS UL E ON 57 03 04 15 5 00 NM Ac DA 23 -1 -1 .0 00 L- ti NS 70 6- 4- 00 07 MA ve ET 07 20 20 47 RT RO 71 17 17 67 N 0 43 PH OD AR T MA 4 CY MG #5 TA 91 BL ET AZ 59 03 03 6. 5 00 NM Ac IT 76 -0 -3 00 00 L- ti HR 23 2- 1- 0 07 MA ve OM 06 20 20 47 RT YC 00 17 17 38 IN 1 95 PH AR 25 MA 0 CY MG #5 TA 91 BL ET OM 60 02 03 30 30 00 NM Ac EP 50 -1 -1 .0 00 L- ti RA 50 6- 7- 00 07 MA ve ZO 14 20 20 44 RT LE 60 17 [address] AR MA 40 CY MG #5 91 CA PS UL E ZO 00 01 02 12 30 00 NM Ac NI 37 -2 -2 0. 00 L- ti SA 86 7- 4- 00 07 MA ve TN 72 20 20 0 46 RT DE 50 17 17 72 1 79 PH 25 AR MA MG CY CA #5 PS 91 UL E OM 60 01 02 30 30 00 NM Ac EP 50 -1 -1 .0 00 [...] CE 68 01 02 20 10 00 NM Ac FD 18 -0 -0 .0 00 L- ti IN 00 5- 3- 00 07 MA ve IR 71 20 20 46 RT 16 17 17 27 30 0 65 PH 0 AR MG MA CY CA PS #5 UL 91 E OM 57 12 01 30 30 00 NM Ac EP 23 -1 -1 .0 00 L- ti RA 70 7- 3- 00 07 MA ve ZO 16 20 20 44 RT LE 23 16 [address] AR MA 40 CY MG #5 91 CA PS UL E DO 57 12 01 20 10 00 NM Ac XY 23 -0 -0 .0 00 L- ti CY 70 8- 9- 00 07 MA ve CL 10 20 20 45 RT IN 50 16 17 73 E 1 54 PH HY AR CL MA AT CY E 10 #5 0 91 MG TA B VA 00 12 01 10 5 00 NM Ac ED 14 -0 -0 .0 00 L- ti NI 39 8- 9- 00 07 MA ve SO 73 20 20 45 RT NE 80 16 17 73 5 55 PH 20 AR MA MG CY TA #5 BL 91 ET VE 00 12 01 18 17 00 NM Ac NT 17 -0 -0 .0 00 [...] Procedures Procedure DOS Code Location Performer Comment 71171 [facility] SCROTUM & 7 N N CONTENTS COMMUNTIY COMMUNTIY HOSPITA HOSPITA OPH 93404 [facility] 6 XM&EVAL COMPRHNSV ESTAB PT 1/> BINOCULAR 96060 [facility] MEDICAL BET MICROSCOP SERV Y FOUNDATIO SEPARATE N DX PROCEDURE CV STRS 27252 [facility] TST 6 N COCO XERS&/OR CARDIOLOG RX CONT Y ECG W/O I&R CV STRS 78957 [facility] TST 6 N N XERS&/OR COMMUNTIY COMMUNTIY RX CONT HOSPITA HOSPITA ECG TRCG ONLY CV STRS 88486 [facility] TST 6 N COCO XERS&/OR CARDIOLOG RX CONT Y ECG I&R ONLY RADIOLOGI 33348 [facility] C 6 N N EXAMINATI COMMUNTIY COMMUNTIY ON KNEE 3 HOSPITA HOSPITA VIEWS ECG 30451 [facility] ROUTINE 6 NURSE TEDDY ECG PRACTITIO W/LEAST NER GR 12 LDS W/I&R EGD 28329 GASTROENT CASE JUS TRANSORAL 5 EROLOGY BIOPSY AND SINGLE/[place] [address] [facility] SURG 5 [facility] PATHOLOGY GROSS&LEONIDES ROSCOPIC EXAM COLONOSCO 65592 GASTROENT CASE JUS PY FLX DX 5 EROLOGY W/COLLJ AND SPEC WHEN HEPATOL PFRMD ANES 18720 [place] JOSE F ANT LOWER 5 ANESTHESI INTESTINE A GROUP PS ENDOSCOPY DISTAL DUODENUM CYANOCOBA 80270 [facility] 5 Y [place] [address] THERAPEUT 09103 [facility] IC 5 NURSE NURSE PROPHYLAC PRACTITIO PRACTITIO TIC/DX NER GR NER GR INJECTION SUBQ/IM [place] 42893 [place] IC 5 MEDICAL MEDICAL PROPHYLAC SERV SERV TIC/DX FOUNDATIO FOUNDATIO INJECTION N N SUBQ/IM THERAPEUT 13034 [facility] [place] IC 5 MEDICAL NANDINI PROPHYLAC SERV TIC/DX FOUNDATIO INJECTION N SUBQ/IM THERAPEUT 34797 [facility] 5 NURSE NURSE PROPHYLAC PRACTITIO PRACTITIO TIC/DX NER GR NER GR INJECTION SUBQ/IM CYANOCOBA 77452 [facility] 5 Y Y [place]AMIN [place] [address] LIPID 16683 [facility] PANEL 5 Y Y HOSPITAL [facility] HEMOGLOBI 09027 [facility] UNIVERS N 5 Y Y GLYCOSYLA [facility] REYMUNDO A1C BLOOD 25839 [facility] COUNT 5 Y Y COMPLETE [facility] AUTO&AUTO DIFRNTL WBC BASIC 90677 [facility] METABOLIC 5 Y Y PANEL [facility] CALCIUM TOTAL SEDIMENTA 77124 [facility] TION RATE 5 Y Y RBC [facility] [place] [address] [facility] THYROID 5 Y Y STIMULATI [facility] [place] [address] [place] JIM ALL ABDOMEN & 5 MEDICAL PELVIS IMAGING [place] [address] [place] JIM ALL SCROTUM & 5 MEDICAL CONTENTS IMAGING ASS NEEDLE 73911 [facility] EMG EA 5 HEALTH JAI EXTREMTY MEDICAL W/PARASPI GROUP NL AREA COMPLETE NERVE 12728 [facility] CONDUCTIO 5 HEALTH JAI N STUDIES MEDICAL 5-6 GROUP STUDIES OPHTH 37757 [facility] 5 XM&EVAL COMPRHNSV ESTAB PT 1/> MRI BRAIN 65037 [facility] BRAIN 5 [facility] STEM W/[place] [address] [facility] FOLIC 5 [facility] [place] [address] [facility] FREE 5 [facility] [place] [address] [facility] THYROID 5 [facility] STIMULATI HOSP HOSP NG HORMONE TSH COLLECTIO 45847 [facility] N VENOUS 5 [facility] BLOOD HOSP HOSP VENIPUNCT URE HEMOGLOBI 83182 [facility] N 5 [facility] W[facility] GLYCOSYLA HOSP HOSP REYMUNDO A1C CYANOCOBA 10963 [facility] VARUN 5 [facility] VITAMIN HOSP HOSP B-12 PHYSICAL 98845 RICKIE DAMIAN THERAPY 5 [facility] [place] [address] [facility] HEAD/BRAI 5 N N N W/O COMMUNTIY COMMUNTIY CONTRAST HOSPITA HOSPITA MATERIAL RADIOLOGI 41639 [facility] [place] DYLAN C 5 RADIOLOGY RHO EXAMINATI ON CHEST SINGLE VIEW FRONTAL INJECTION A9579 [facility] 5 N N GADOLINIU COMMUNTIY COMMUNTIY M BASED HOSPITA HOSPITA MR CONTRAST NOS ML MRI BRAIN 18407 [facility] [place] SCALF PAT BRAIN 5 RADIOLOGY STEM W/O W/CONTRAS T MATERIAL RADIOLOGI 07296 [facility] C EXAM 5 N N CHEST 2 COMMUNTIY COMMUNTIY VIEWS HOSPITA HOSPITA FRONTAL&[place] [address] [facility] ALDOSTERO 4 N N NE [facility] [place] [address] [facility] TESTOSTER 4 N N ONE TOTAL [facility]OSP[facility] HOSPITA METANEPHR 32989 [facility] MICHA 4 N N [facility] HOSPITA COLLECTIO 80832 [facility] N VENOUS 4 N N BLOOD [facility] VENIPUNCT HOSPITA HOSPITA URE CATECHOLA 44213 [facility] MINE 4 N N FRACTIONA [facility] REYMUNDO HOSPITA HOSPITA CORTISOL 73180 [facility] FREE 4 N N [facility] [place] [address] [facility] VANILLYLM 4 N N ANDELIC [facility] ACID HOSPITA HOSPITA URINE RADIOLOGI 47847 [place] ALEXANDRA C EXAM 4 MEDICAL SAMANTHA CHEST 2 IMAGING VIEWS ASS FRONTAL&L ATERAL METANEPHR 01736 [facility] MICHA 4 DIAGNOSTI DIAGNOSTI CS CS PHYSICAL 95269 [facility] THERAPY 4 N N EVALUATIO [facility] [place] [address] [facility] ABDOMINAL 4 [facility] REAL HOSP HOSP TIME W/IMAGE DOCUMENTA TION BLOOD 60503 [facility] COUNT 4 DIAGNOSTI DIAGNOSTI COMPLETE CS CS AUTO&[place] [address] [facility] LIPASE 4 DIAGNOSTI DIAGNOSTI CS CS COMPREHEN 20726 [facility] SIVE 4 DIAGNOSTI DIAGNOST[place] [address] [facility] AMYLASE 4 DIAGNOSTI DIAGNOSTI CS CS ACUTE 84898 [facility] HEPATITIS 4 DIAGNOSTI DIAGNOSTI PANEL CS CS PURE TONE 69472 DREW RUSSELL 4 JULIA DUMONT AUDIOMETR Y AIR ONLY SPEECH 06496 DREW RUSSELL AUDIOMETR 4 JULIA DUMONT Y THRESHOLD SPEECH RECOGNIJ CALORIC 88477 DREW RUSSELL VESTIBULA 4 JULIA DUMONT R TEST EA IRRIGATIO N W/RECORD SPONTANEO 12971 DREW RUSSELL US 4 JULIA DUMONT NYSTAGMUS TEST LARYNGOSC 79464 THAD ONEIL OPY 4 NEIL NEIL FLEXIBLE DIAGNOSTI C ANTIBODY 04968 [facility] HERPES 4 DIAGNOSTI DIAGNOSTI SMPLX CS CS TYPE 1 ANTIBODY 23792 [facility] HERPES 4 DIAGNOSTI DIAGNOSTI SMPLX [place] TYPE [place] [address] [facility] THYROID 4 DIAGNOSTI DIAGNOSTI STIMULATI CS CS NG HORMONE TSH COMPREHEN 08067 [facility] SIVE 4 DIAGNOSTI DIAGNOSTI METABOLIC CS CS PANEL LIPID 35207 [facility] PANEL 4 DIAGNOSTI DIAGNOSTI CS CS BLOOD 27969 [facility] COUNT 4 DIAGNOSTI DIAGNOSTI COMPLETE CS CS AUTOMATED HEMOGLOBI 24443 [facility] N 4 DIAGNOSTI DIAGNOSTI GLYCOSYLA CS CS REYMUNDO A1C Encounters Encounter Start End Date Code Location Performer Type Date OFFICE 60004 [facility] GOFF OUTPATIEN 7 7 MEDICAL T VISIT SERV 25 FOUNDATIO MINUTES [facility] - 7 7 [facility] OUTPATIEN E T HOSPITALS OFFICE 10318 OUTPATIEN 7 7 [facility]ALTH[facility] T VISIT 5 E MINUTES HOSPITALS OFFICE 17285 [facility] BELCHER OUTPATIEN 7 7 NURSE T VISIT PRACTITIO 25 NER GR MINUTES [facility]OS[facility] - 7 7 N OUTPATIEN COMMUNTIY T HOSPITA OFFICE 87402 PATRICK MOULTON CONSULTAT 7 7 [facility] ION NEW/ESTAB PATIENT 40 MIN OFFICE 52501 [facility] JAZZ OUTPATIEN 7 7 NURSE T VISIT PRACTITIO 25 NER GR MINUTES OFFICE 41064 [place] GOFF OUTPATIEN 7 7 MEDICAL T VISIT SERV 25 FOUNDATIO MINUTES N OFFICE 62759 [facility] JAZZ OUTPATIEN 7 7 NURSE T VISIT PRACTITIO 25 NER GR MINUTES OFFICE 99256 [facility] OUTPATIEN 7 7 NURSE T VISIT PRACTITIO 15 NER GR MINUTES OFFICE 99154 [place] KERN OUTPATIEN 6 6 MEDICAL HUFNAGEL T VISIT SERV LAR 15 FOUNDATIO MINUTES N OFFICE 13873 [facility] OUTPATIEN 6 6 NURSE TEDDY T VISIT PRACTITIO 15 NER GR MINUTES OFFICE 54484 [place] CHAPARRITA OUTPATIEN 6 6 MEDICAL BET T NEW 30 SERV MINUTES FOUNDATIO N OFFICE 41912 [facility] OUTPATIEN 6 6 NURSE TEDDY T VISIT PRACTITIO 15 NER GR MINUTES OFFICE 34404 [facility] OUTPATIEN 6 6 NURSE TEDDY T VISIT PRACTITIO 15 NER GR MINUTES OFFICE 67913 EAR, NOSE THAD OUTPATIEN 6 6 AND NEIL T VISIT THROAT 25 SPECIAL MINUTES OFFICE 84646 [facility] OUTPATIEN 6 6 NURSE TEDDY T VISIT PRACTITIO 15 NER GR MINUTES OFFICE 31795 [facility] OUTPATIEN 6 6 NURSE TEDDY T VISIT PRACTITIO 15 NER GR MINUTES [facility] - 6 6 N OUTPATIEN COMMUNTIY T HOSPITA OFFICE 06586 [facility] OUTPATIEN 6 6 NURSE TEDDY T VISIT PRACTITIO 15 NER GR MINUTES OFFICE 36106 [facility] JAZZ CAR OUTPATIEN 6 6 NURSE T VISIT PRACTITIO 15 NER GR MINUTES OFFICE 63035 [facility] JAZZ CAR OUTPATIEN 6 6 NURSE T VISIT PRACTITIO 15 NER GR MINUTES OFFICE 10609 [facility] JAZZ CAR OUTPATIEN 6 6 NURSE T VISIT PRACTITIO 15 NER GR MINUTES OFFICE 90243 [facility] OUTPATIEN 6 6 NURSE T VISIT PRACTITIO 15 NER GR MINUTES OFFICE 63553 [place] ANABEL LAR OUTPATIEN 5 5 MEDICAL T VISIT SERV 15 FOUNDATIO MINUTES N OFFICE 55305 [facility] OUTPATIEN 5 5 NURSE TEDDY T VISIT PRACTITIO 15 NER GR MINUTES HOSPITAL UNIVERSIT - [address] [facility] T OFFICE 12208 GASTROENT CASE JUS CONSULTAT 5 5 EROLOGY ION AND NEW/ESTAB HEPATOL PATIENT 60 MIN OFFICE 79678 [facility] 5 NURSE TEDDY T VISIT PRACTITIO 25 NER GR MINUTES HOSPITAL UNIVERSIT - [address] [facility] T EMERGENCY 05660 ASHWIN Owen 5 5 DEPARTMEN T VISIT HIGH/URGE NT SEVERITY OFFICE 74960 [facility] 5 5 HEALTH GLORIA T VISIT MEDICAL 15 GROUP MINUTES OFFICE 63235 SF [facility] 5 5 NURSE TEDDY T VISIT PRACTITIO 15 NER GR MINUTES HOSPITAL CENTRAL - 5 5 [facility] T OFFICE 76124 RUTH ADRIAN II CONSULTAT 5 5 [facility] HU MD NEW/ESTAB PATIENT 60 MIN [facility] [place] - 5 5 [facility] OUTPATI[facility] HOSP T OFFICE 58744 [facility] W[facility] NABIL OUTPATIEN 5 5 HEALTH GLORIA T NEW [address] [facility] RICKIE - 5 5 [facility] 66413 KMS BELCHER OUTPATIEN 5 5 NURSE TEDDY T VISIT PRACTITIO 15 NER GR [facility] [place] [address] 5 N [facility] 46030 CAROLGIOVANNA GOFF TRISHA CONSULTAT 5 5 N ION NEUROLOGY NEW/ESTAB PATIENT 60 MIN [facility] 5 5 N [facility] OFF[facility] 77034 ARIA ROMERO OUTPATIEN 5 5 RENAL T VISIT CARE PSC 25 MINUTES [facility] - 4 4 N OUTPATIEN [facility] 50704 [facility] FUENTESA OUTPATIEN 4 4 RENAL T NEW 60 CARE PSC MINUTES EMERGENCY 84912 [facility] 4 [address] [address] [facility] HIGH/URGE NT SEVERITY [facility] - 4 4 N OUTPATIEN [facility] T HOSPITA OFFICE 45326 KARRI SHORT OUTPATIEN 4 4 MEDICAL T VISIT SERV 25 FOUNDATIO MINUTES N OFFICE 22374 THAD ONEIL CONSULTAT 4 4 NEIL HU NEW/ESTAB PATIENT 40 MIN OFFICE 60888 KARRI RICE OUTPATIEN 4 4 MEDICAL KIN NANDINI T VISIT SERV 25 FOUNDATIO MINUTES N OFFICE 72105 [place] TEJEDA-RAN OUTPATIEN 4 4 MEDICAL ALESSANDRA Sanders NEW 45 SERV MINUTES FOUNDATIO N Emergency PRASANTH Connors MD (ER) 3 21:33 3 23:09 [facility] Emergency PRASANTH Barragan MD (ER) 3 04:03 3 04:58 [facility]
--- OUTSIDE RECORDS SUMMARY | 2017-04-04 13:03 | External Medical Summary Rpt | CCD ---
Author Author , ROXANN Organization [facility] Address Unknown Phone [email or web address] [email or web address] Care Claims Customer Service Representative Name Role Phone TITI SHORT, TITI SHORT Unavailable Unavailable [facility] Unavailable Unavailable MEDICAL GROUP, [facility] ASHWIN L, ASHWIN L Unavailable Unavailable ASHWIN L, ASHWIN L Unavailable Unavailable [facility] Un[facility] JIM ALL, JIM ALL Unavailable Unavailable HILL NANDINI, HILL Unavailable Unavailable NANDINI CASE JUS, CASE JUS Unavailable Unavailable [facility], Unavailable Unavailable [facility], Unavailable Unavailable [facility] BELCHER, BELCHER Unavailable Unavailable BELCHER TEDDY, Unavailable Unavailable [facility]CH[facility] TEDDY JAZZ, JAZZ Unavailable Unavailable JAZZ CAR, JAZZ CAR Unavailable Unavailable ALEXANDRA SAMANTHA, Unavailable Unavailable ALEXANDRA SAMANTHA TEJEDA-RIOS NANDINI, Unavailable Unavailable TEJEDA-RIOS NANDINI PAUL MAR, PAUL MAR Unavailable Unavailable [facility] Unavailable Unavailable HOSPITA, [facility] Unavailable [facility]available HOSPITA, [facility], Unavailable Unavailable [facility] DYLAN RHO, DYLAN Unavailable Unavailable RHO ARGUELLO JOE, ARGUELLO Unavailable Unavailable JO[facility] Unavailable Unavailable INC, [facility] QUIGLEY, QUIGLEY Unavailable Unavailable QUIGLEY, QUIGLEY Unavailable Unavailable QUIGLEY DEVON, QUIGLEY DEVON Unavailable Unavailable QUIGLEY DEVON, QUIGLEY DEVON Unavailable Unavailable [facility] Unavailable Unavailable GROUP PS, [facility] Un[facility] Unavailable [facility], [facility] KERN LAR, KERN LAR Unavailable Unavailable KERN HUFNAGEL LAR, Unavailable Unavailable [facility]ERN HUFNAGEL L[facility] NURSE Unavailable Unavailable PRACTITIONER GR, [facility] NURSE PRACTITIONER [facility] JOSE F ANT, JOSE F ANT Unavailable Unavailable CHAPARRITA BET, CHAPARRITA Unavailable Unavailable BET FERRER GLORIA, FERRER Unavailable Unavailable GLORIA [facility], Unavailable Unavailable [facility] Un[facility], Unavailable Unavailable [facility], Unavailable Unavailable [facility] RICE N., RICE N. Unavailable Unavailable MALACHI HEATHER, MALACHI HEATHER Unavailable Unavailable SCALF, SCALF Unavailable Unavailable SCALF PAT, SCALF PAT Unavailable Unavailable SHASHY JULIA, SHASHY Unavailable Unavailable JULIA MARAHY JULIA, SHASHY Unavailable Unavailable JULIA GOFF, GOFF Unavailable Unavailable GOFF TRISHA, GOFF TRISHA Unavailable Unavailable KENNEY, KENNEY Unavailable Unavailable OBIE SEPULVEDA, OBIE Unavailable Unavailable COCO CARVAJAL JAI, Unavailable Unavailable TILINDA JAI [facility] Unavailable Unavailable LLC, [facility] Unavailable [facility]available HOSPITALS, [facility], Unavailable Unavailable [facility] THAD TREJO, THAD Unavailable Unavailable NEIL TREJO, THAD Unavailable Unavailable NEIL ADRIAN II NEIL, ADRIAN Unavailable Unavailable II NEIL Purpose Continuity of Care Document - 01-28-2014 through 2016 Problems Code Diagnosis DOS Provider Status [id number] BENIGN 02-06-2017 [facility] UNSPECIFIED EAR R270 ATAXIA 02-06-2017 [facility] R42 DIZZINESS 02-06-2017 [employer] AND [facility] [employer] [facility] R51 HEADACHE 02-06-2017 [facility] M792 NEURALGIA 11-19-2016 [facility] NURSE AND PRACTITIONE NEURITIS R GR UNSPECIFIED N432 OTHER 10-29-2016 [facility] N4340 SPERMATOCEL 10-29-2016 [facility] OF [facility]TIY EPIDIDYMIS HOSPITA UNSPECIFIED N5082 SCROTAL 10-29-2016 [facility] PAIN [facility]PITA W43117 TESTICULAR 10-08-2016 [facility] NURSE PAIN PRACTITIONE UNSPECIFIED R GR N5089 OTHER 10-08-2016 [facility] NURSE SPECIFIED PRACTITIONE DISORDERS R GR OF MALE GENITAL ORGANS N509 DISORDER OF 10-08-2016 [facility] NURSE MALE PRACTITIONE GENITAL R GR ORGANS UNSPECIFIED R109 UNSPECIFIED 10-08-2016 [facility] NURSE ABDOMINAL PRACTITIONE PAIN R GR T148 OTHER 10-08-2016 [facility] NURSE INJURY OF PRACTITIONE UNSPECIFIED R GR BODY REGION Z789 OTHER 10-08-2016 [facility] NURSE SPECIFIED PRACTITIONE HEALTH R GR STATUS [id number] MIGRAINE 10-02-2016 [facility] W/AURA NOT SERV INTRACT W/O FOUNDATION STAT MIGRAINOSUS [id number] CHRONIC 10-02-2016 [facility] TENSION-TYP SERV E HEADACHE [facility] NOT INTRACTABLE H6693 OTITIS 08-22-2016 [facility] NURSE MEDIA PRACTITIONE UNSPECIFIED R GR BILATERAL M542 CERVICALGIA 08-22-2016 [facility] NURSE PRACTITIONE R GR J209 ACUTE 06-27-2016 [facility] NURSE BRONCHITIS PRACTITIONE UNSPECIFIED R GR H524 PRESBYOPIA 06-04-2016 [facility] [id number] OTH 04-03-2016 [facility] MIGRAINE SERV NOT INTRACT FOUNDATION W/O STATUS MIGRAINOSUS I10 ESSENTIAL 03-21-2016 [facility] NURSE PRIMARY PRACTITIONE HYPERTENSIO R GR N K219 GASTRO-ESOP 12-28-2015 [facility] NURSE H REFLUX PRACTITIONE DISEASE R GR WITHOUT ESOPHAGITIS N508 OTHER 12-28-2015 [facility] NURSE SPECIFIED PRACTITIONE DISORDERS R GR OF MALE GENITAL ORGANS H89437 PAIN IN 11-06-2015 [facility]EE [facility] R079 CHEST PAIN 11-06-2015 [facility] UNSPECIFIED COMM[facility]TIY HOSPITA H78679 PAIN IN 09-29-2015 [facility] NURSE LEFT UPPER PRACTITIONE ARM R GR L240 IRRITANT 09-05-2015 [facility] NURSE CONTACT PRACTITIONE DERMATITIS R GR DUE TO DETERGENTS J0190 ACUTE 08-01-2015 [facility] NURSE SINUSITIS PRACTITIONE UNSPECIFIED R GR A25366O STRAIN 08-01-2015 [facility] NURSE MUSCLE PRACTITIONE FASCIA & R GR TENDON LOW BACK INITIAL H6093 UNSPECIFIED 05-26-2015 [facility] OTITIS SERV EXTERNA FOUNDATION BILATERAL 30613 ATROPHIC 03-15-2015 [facility] WITHOUT MENTION OF HEMORRHAGE 5781 BLOOD IN 03-15-2015 [place] [address] ABDOMINAL 03-15-2015 [place] [facility], ANESTHESIA UNSPECIFIED GROUP PS SITE 81517 OTHER 03-13-2015 [facility] FATIGUE 2662 OTHER 03-01-2015 [facility] NURSE B-COMPLEX PRACTITIONE DEFICIENCIE R GR S 6089 UNSPECIFIED 02-08-2015 [facility] PLANO OF MALE GENITAL ORGANS 7804 DIZZINESS 02-08-2015 [facility] GIDDINESS V5869 LONG-TERM 02-08-2015 [place] [facility]CURRENT[facility] USE OF OTHER MEDICATIONS 70587 UNSPECIFIED 12-28-2014 ASHWIN Owen ORCHITIS AND EPIDIDYMITI S 96700 EDEMA OF 12-28-2014 [place] [facility] ORGANS 52757 OTHER 12-28-2014 [place] SPECIFIED MEDICAL DISORDER OF IMAGING ASS MALE GENITAL ORGANS 3484 COMPRESSION 12-21-2014 [facility] 46078 BENIGN 12-21-2014 [facility] PAROXYSMAL [facility] POSITIONAL MEDICAL [facility] GROUP 7820 DISTURBANCE 12-16-2014 [facility] 3674 PRESBYOPIA 12-13-2014 QUIGLEY DEVON 3314 OBSTRUCTIVE 11-29-2014 [facility] HYDROCEPHAL [facility]P US 7812 ABNORMALITY 11-29-2014 [facility] V571 OTHER 11-10-2014 [facility] 06546 CHEST PAIN 10-28-2014 [facility] UNSPECIFIED RADIOLOGY 3688 OTHER 09-07-2014 [facility] SPECIFIED COMM[facility]TIY VISUAL HOSPITA DISTURBANCE S 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 UNSPECIFIED [facility] SITE 5718 OTHER 04-11-2014 [facility] NONALCOHOLI C LIVER DISEASE 32591 FLUSHING 04-06-2014 [facility] 71100 ESOPHAGEAL 02-22-2014 THAD NEIL REFLUX 7821 RASH AND 02-11-2014 [facility] NONSPECIFIC SKIN ERUPTION 2721 PURE 01-28-2014 [facility] IDEMIA 4779 ALLERGIC 01-28-2014 [facility] RHINITIS SERV CAUSE [facility]OUNDATION UNSPECIFIED Medications Na ND Rx Da Fi Fi Am Da Di Ph RX Ph St me C No te ll ll ou ys ag ar # ys at rm s nt no ma ic us Or Da si cy ia de te s n re d VE 23 08 09 90 30 00 WA Ac RA 15 -2 -2 .0 00 L- ti PA 50 5- 2- 00 07 MA ve MA 02 20 20 50 RT L 60 17 17 59 80 1 28 PH AR MG MA CY TA BL #5 ET 91 AC 00 08 09 60 30 00 OR Ac ET 52 -1 -1 .0 00 L- ti AZ 71 8- 5- 00 07 MA ve OL 05 20 20 50 RT AM 00 17 17 46 ID 1 91 PH E AR 25 MA 0 CY MG #5 TA 91 BL ET OM 60 08 09 30 30 00 OR Ac EP 50 -1 -0 .0 00 L- ti RA 50 5- 8- 00 07 MA ve ZO 14 20 20 47 RT LE 60 17 [address] AR MA 40 CY MG #5 91 CA PS UL E OM 60 07 08 30 30 00 OR Ac EP 50 -1 -1 .0 00 L- ti RA 50 4- 1- 00 07 MA ve ZO 14 20 20 47 RT LE 60 17 [address] AR MA 40 CY MG #5 91 CA PS UL E OM 60 06 07 30 30 00 OR Ac EP 50 -1 -1 .0 00 L- ti RA 50 6- 4- 00 07 MA ve ZO 14 20 20 47 RT LE 60 17 [address] AR MA 40 CY MG #5 91 CA PS UL E AM 16 05 06 30 30 00 OR Ac IT 72 -3 -2 .0 00 L- ti RI 90 0- 3- 00 07 MA ve PT 17 20 20 49 RT YL 21 17 17 05 IN 7 90 PH E AR HC MA L CY 25 #5 MG 91 TA B OM 60 05 06 30 30 00 OR Ac EP 50 -1 -0 .0 00 L- ti RA 50 6- 9- 00 07 MA ve ZO 14 20 20 47 RT LE 60 17 [address] AR MA 40 CY MG #5 91 CA PS UL E VE 00 04 05 60 30 00 OR Ac RA 59 -1 -1 .0 00 L- ti PA 12 3- 2- 00 07 MA ve MA 88 20 20 48 RT L 00 17 17 20 SR 1 06 PH AR 12 MA 0 CY MG #5 CA 91 PS UL E OM 60 04 05 30 30 00 OR Ac EP 50 -1 -1 .0 00 L- ti RA 50 7- 2- 00 07 MA ve ZO 14 20 20 47 RT LE 60 17 [address] AR MA 40 CY MG #5 91 CA PS UL E CY 68 04 05 90 30 00 OR Ac CL 64 -1 -1 .0 00 L- ti OB 50 8- 2- 00 07 MA ve EN 51 20 20 48 RT ZA 89 17 17 30 IA 0 29 PH IN AR E MA 10 CY MG #5 91 TA BL ET ON 57 03 04 15 5 00 OR Ac DA 23 -1 -1 .0 00 L- ti NS 70 6- 4- 00 07 MA ve ET 07 20 20 47 RT RO 71 17 17 67 N 0 43 PH OD AR T MA 4 CY MG #5 TA 91 BL ET OM 60 03 04 30 30 00 OR Ac EP 50 -1 -1 .0 00 L- ti RA 50 7- 4- 00 07 MA ve ZO 14 20 20 47 RT LE 60 17 [address] AR MA 40 CY MG #5 91 CA PS UL E AZ 59 03 03 6. 5 00 OR Ac IT 76 -0 -3 00 00 L- ti HR 23 2- 1- 0 07 MA ve OM 06 20 20 47 RT YC 00 17 17 38 IN 1 95 PH AR 25 MA 0 CY MG #5 TA 91 BL ET OM 60 02 03 30 30 00 OR Ac EP 50 -1 -1 .0 00 L- ti RA 50 6- 7- 00 07 MA ve ZO 14 20 20 44 RT LE 60 17 [address] AR MA 40 CY MG #5 91 CA PS UL E ZO 00 01 02 12 30 00 OR Ac NI 37 -2 -2 0. 00 L- ti SA 86 7- 4- 00 07 MA ve MA 72 20 20 0 46 RT DE 50 17 17 72 1 79 PH 25 AR MA MG CY CA #5 PS 91 UL E OM 60 01 02 30 30 00 OR Ac EP 50 -1 -1 .0 00 L- ti RA 50 5- 0- 00 07 MA ve ZO 14 20 20 44 RT LE 60 17 [address] AR MA 40 CY MG #5 91 CA PS UL E CE 68 01 02 20 10 00 OR Ac FD 18 -0 -0 .0 00 L- ti IN 00 5- 3- 00 07 MA ve IR 71 20 20 46 RT 16 17 17 27 30 0 65 PH 0 AR MG MA CY CA PS #5 UL 91 E AZ 59 01 02 6. 5 00 OR Ac IT 76 -0 -0 00 00 L- ti HR 23 6- 3- 0 07 MA ve OM 06 20 20 46 RT YC 00 17 17 30 IN 1 49 PH AR 25 MA 0 CY MG #5 TA 91 BL ET OM 57 12 01 30 30 00 WA Ac EP 23 -1 -1 .0 00 L- ti RA 70 7- 3- 00 07 MA ve ZO 16 20 20 44 RT LE 23 16 [address] AR MA 40 CY MG #5 91 CA PS UL E DO 57 12 01 20 10 00 OR Ac XY 23 -0 -0 .0 00 L- ti CY 70 8- 9- 00 07 MA ve CL 10 20 20 45 RT IN 50 16 17 73 E 1 54 PH HY AR CL MA AT CY E 10 #5 0 91 MG TA B IA 00 12 01 10 5 00 OR Ac ED 14 -0 -0 .0 00 L- ti NI 39 8- 9- 00 07 MA ve SO 73 20 20 45 RT NE 80 16 17 73 5 55 PH 20 AR MA MG CY TA #5 BL 91 ET VE 00 12 01 18 17 00 OR Ac NT 17 -0 -0 .0 00 L- ti OL 30 8- 9- 00 07 MA ve IN 68 20 20 45 RT 22 16 17 73 HF 0 59 PH A AR 90 MA CY MC G #5 IN 91 OSUNA LE R Procedures Procedure DOS Code Location Performer Comment 05906 [facility] [place] SCAL[facility] SCROTUM & 7 RADIOLOGY CONTENTS OPHTH 71724 [facility] 6 XM&EVAL COMPRHNSV ESTAB PT 1/> BINOCULAR 79125 [place] CHAPARRITA 6 MEDICAL BET MICROSCOP SERV Y FOUNDATIO SEPARATE N DX PROCEDURE CV STRS 81556 [facility] TST 6 N COCO XERS&/OR CARDIOLOG RX CONT Y ECG W/O I&R CV STRS 01400 [facility] TST 6 N N XERS&/OR COMMUNTIY COMMUNTIY RX CONT HOSPITA HOSPITA ECG TRCG ONLY RADIOLOGI 89030 [facility] [place] ARGUELLO C 6 RADIOLOGY JOE EXAMINATI ON KNEE 3 VIEWS CV STRS 49823 [facility] TST 6 N COCO XERS&/OR CARDIOLOG RX CONT Y ECG I&R ONLY ECG 75504 [facility] BELCHER ROUTINE 6 NURSE TEDDY ECG PRACTITIO W/LEAST NER GR 12 LDS W/I&R ANES 23704 [place] JOSE F ANT LOWER 5 ANESTHESI INTESTINE A GROUP PS ENDOSCOPY DISTAL DUODENUM COLONOSCO 60763 GASTROENT CASE JUS PY FLX DX 5 EROLOGY W/COLLJ [place] [address] [facility] SURG 5 [facility] PATHOLOGY GROSS&LEONIDES ROSCOPIC EXAM EGD 25498 GASTROENT CASE JUS TRANSORAL 5 EROLOGY BIOPSY AND SINGLE/MU HEPATOL LTIPLE CYANOCOBA 57904 [facility] VARUN 5 Y Y VITAMIN [facility] THERAPEUT 12102 [facility]SE NURSE PROPHYLAC PRACTITIO PRACTITIO TIC/DX NER GR NER GR INJECTION SUBQ/IM [place] 89023 [place] IC 5 MEDICAL MEDICAL PROPHYLAC SERV SERV TIC/DX FOUNDATIO FOUNDATIO INJECTION N N SUBQ/IM THERAPEUT 86500 [place] IC 5 MEDICAL NANDINI PROPHYLAC SERV TIC/DX FOUNDATIO INJECTION N SUBQ/IM THERAPEUT 01662 [facility] KMSF IC 5 NURSE NURSE PROPHYLAC PRACTITIO PRACTITIO TIC/DX NER GR NER GR INJECTION SUBQ/IM CYANOCOBA 18117 [facility] VARUN 5 Y Y VITAMIN [place] [address] BASIC 98632 [facility] METABOLIC [address] [facility] CALCIUM TOTAL SEDIMENTA 06594 [facility] TION RATE [address] [facility] AUTOMATED LIPID 17606 [facility] PANEL [address] [facility] HEMOGLOBI 27824 [facility] N [address] [facility] REYMUNDO A1C BLOOD 22503 [facility] COUNT [address] [facility] AUTO&[place] [address] [facility] THYROID [address] [facility] [place] [address] [place] JIM ALL SCROTUM & [address] [place] [address] [place] JIM ALL ABDOMEN & 5 MEDICAL PELVIS IMAGING W/O ASS CONTRAST MATERIAL NERVE 60407 [facility] CONDUCTIO 5 HEALTH JAI N STUDIES MEDICAL 5-6 GROUP STUDIES NEEDLE 64790 [facility] EMG EA 5 HEALTH JAI EXTREMTY MEDICAL W/PARASPI GROUP NL AREA COMPLETE OPHTH 95676 [facility] MEDICAL 5 XM&EVAL COMPRHNSV ESTAB PT 1/> MRI BRAIN 39801 [facility] N. BRAIN 5 RADIOLOGY STEM W/O ASSOC CONTRAST MATERIAL CYANOCOBA 83823 [facility] VARUN 5 GNOSTICISM G[facility]STIC[facility] VITAMIN HOSP HOSP B-[address] [place] [address] [facility] THYROID 5 GNOSTICISM GNO[facility] STIMULATI HOSP HOSP NG HORMONE TSH COLLECTIO 74976 [facility] N VENOUS 5 GNOSTICISM [facility] [place] [address] [facility] FOLIC 5 GNOSTICISM [facility] [place] [address] [facility] FREE 5 GNOSTICISM [facility] THYROXINE HOSP HOSP HEMOGLOBI 12690 [facility] N 5 GNOSTICISM GNOSTICISM GLYCOSYLA HOSP HOSP REYMUNDO A1C PHYSICAL 53942 [facility] DAMIAN THERAPY 5 [facility] [place] [address] [facility] [place] HEAD/BRAI 5 RADIOLOGY RHO N W/O CONTRAST MATERIAL RADIOLOGI 13822 [facility] [place]YL[place] C 5 RADIOLOGY RHO EXAMINATI ON CHEST SINGLE VIEW FRONTAL MRI BRAIN 73035 [facility] BRAIN 5 N N STEM W/O COMMUNTIY COMMUNTIY W/CONTRAS HOSPITA HOSPITA T MATERIAL INJECTION A9579 [facility] 5 N N GADOLINIU COMMUNTIY COMMUNTIY M BASED HOSPITA HOSPITA MR CONTRAST NOS ML RADIOLOGI 16897 [facility] [place] SCALF PAT C EXAM 5 RADIOLOGY CHEST 2 VIEWS FRONTAL&[place] [address] [facility] TESTOSTER 4 N N ONE TOTAL [facility] [place] [address] [facility] ALDOSTERO 4 N N NE [facility] HOSPITA HOSPITA COLLECTIO 23398 [facility] N VENOUS 4 N N BLOOD [facility] VENIPUNCT HOSPITA HOSPITA URE METANEPHR 06484 [facility] MICHA 4 N N [facility] HOSPITA HOSPITA CATECHOLA 38368 [facility] MINES 4 N N FRACTIONA [facility] REYMUNDO HOSPITA HOSPITA CORTISOL 06360 [facility] FREE 4 N N [facility] [place] [address] [facility] VANILLYLM 4 N N ANDELIC [facility] ACID HOSPITA HOSPITA URINE RADIOLOGI 67156 [place] ALEXANDRA C EXAM 4 MEDICAL SAMANTHA CHEST 2 IMAGING VIEWS ASS FRONTAL&L ATERAL METANEPHR 65065 [facility] MICHA 4 DIAGNOSTI DIAGNOSTI CS CS PHYSICAL 72846 [facility] THERAPY 4 N N EVALUATIO [facility] [place] [address] [facility] MAR ABDOMINAL 4 RADIOLOGY REAL ASSOC TIME W/IMAGE DOCUMENTA TION BLOOD 14322 [facility] COUNT 4 DIAGNOSTI DIAGNOSTI COMPLETE CS CS AUTO&AUTO DIFRNTL WBC COMPREHEN 85976 [facility] SIVE 4 DIAGNOSTI DIAGNOSTI METABOLIC CS CS PANEL ACUTE 76535 [facility] HEPATITIS 4 DIAGNOST[place] [address] [facility] LIPASE 4 [place] [address] [facility] AMYLASE 4 DIAGNOSTI DIAGNOSTI CS CS CALORIC 95683 DREW RUSSELL VESTIBULA 4 JULIA DUMONT R TEST EA IRRIGATIO N W/RECORD SPONTANEO 60034 DREW QUINONES 4 JULIA DUMONT NYSTAGMUS TEST PURE TONE 47449 DREW DUMONT AUDIOMETR Y AIR ONLY SPEECH 61054 DREW RUSSELL AUDIOMETR 4 JULIA DUMONT Y THRESHOLD SPEECH RECOGNIJ LARYNGOSC 92407 THAD ONEIL OPY 4 NEIL NEIL FLEXIBLE DIAGNOSTI C ANTIBODY 08908 [facility] HERPES 4 DIAGNOSTI DIAGNOSTI SMPLX CS CS TYPE 1 ANTIBODY 46551 [facility] HERPES 4 DIAGNOSTI DIAGNOSTI SMPLX CS CS TYPE 2 BLOOD 64046 [facility] COUNT 4 DIAGNOSTI DIAGNOSTI COMPLETE CS CS AUTOMATED LIPID 21947 [facility] PANEL 4 DIAGNOSTI DIAGNOSTI CS CS COMPREHEN 26170 [facility] SIVE 4 DIAGNOSTI DIAGNOSTI METABOLIC CS CS PANEL HEMOGLOBI 07906 [facility] N 4 DIAGNOSTI DIAGNOSTI GLYCOSYLA [place] [address] [facility] THYROID 4 DIAGNOSTI DIAGNOSTI STIMULATI CS CS NG HORMONE TSH Encounters Encounter Start End Date Code Location Performer Type Date OFFICE 22764 [facility] OUTPATIEN 7 7 MEDICAL T VISIT SERV 25 FOUNDATIO MINUTES HOSPITAL - 7 7 [facility] OUTPATIEN E T HOSPITALS OFFICE 27209 OUTPATIEN 7 7 HEALTHCAR T VISIT 5 E MINUTES HOSPITALS OFFICE 86665 [facility] OUTPATIEN 7 7 NURSE T VISIT PRACTITIO 25 NER GR MINUTES HOSPITAL [place] [address] 7 N OUTPATIEN COMMUNTIY T HOSPITA OFFICE 02859 [facility] CONSULTAT 7 7 PerpetuallO, [facility] ION NEW/ESTAB PATIENT 40 MIN OFFICE 77534 [facility] JAZZ OUTPATIEN 7 7 NURSE T VISIT PRACTITIO 25 NER GR MINUTES OFFICE 49315 KARRI GOFF OUTPATIEN 7 7 MEDICAL T VISIT SERV 25 FOUNDATIO MINUTES N OFFICE 38730 [facility] OUTPATIEN 7 7 NURSE T VISIT PRACTITIO 25 NER GR MINUTES OFFICE 20926 [facility] YE OUTPATIEN 7 7 NURSE T VISIT PRACTITIO 15 NER GR MINUTES OFFICE 13743 [place] [facility] OUTPATIEN 6 6 MEDICAL HUFNAGEL T VISIT SERV LAR 15 FOUNDATIO MINUTES N OFFICE 91314 [facility] OUTPATIEN 6 6 NURSE TEDDY T VISIT PRACTITIO 15 NER GR MINUTES OFFICE 84952 [place] CHAP[place] OUTPATIEN 6 6 MEDICAL BET T NEW 30 SERV MINUTES FOUNDATIO N OFFICE 98307 [facility] OUTPATIEN 6 6 NURSE TEDDY T VISIT PRACTITIO 15 NER GR MINUTES OFFICE 58574 [facility] OUTPATIEN 6 6 NURSE TEDDY T VISIT PRACTITIO 15 NER GR MINUTES OFFICE 25236 EAR, NOSE THAD OUTPATIEN 6 6 AND NEIL T VISIT THROAT 25 SPECIAL MINUTES OFFICE 01123 [facility] OUTPATIEN 6 6 NURSE TEDDY T VISIT PRACTITIO 15 NER GR MINUTES OFFICE 86518 [facility] OUTPATIEN 6 6 NURSE TEDDY T VISIT PRACTITIO 15 NER GR MINUTES [facility] - 6 6 N OUTPATIEN COMMUNTIY T HOSPITA OFFICE 28506 [facility] OUTPATIEN 6 6 NURSE TEDDY T VISIT PRACTITIO 15 NER GR MINUTES OFFICE 28483 [facility] CAR OUTPATIEN 6 6 NURSE T VISIT PRACTITIO 15 NER GR MINUTES OFFICE 37675 [facility] OUTPATIEN 6 6 NURSE T VISIT PRACTITIO 15 NER GR MINUTES OFFICE 38163 [facility] CAR OUTPATIEN 6 6 NURSE T VISIT PRACTITIO 15 NER GR MINUTES OFFICE 63554 [facility] OUTPATIEN 6 6 NURSE T VISIT PRACTITIO 15 NER GR MINUTES OFFICE 24380 [place] [facility] OUT[facility] 5 5 MEDICAL T VISIT SERV 15 FOUNDATIO MINUTES N OFFICE 92423 [facility] OUTPATIEN 5 5 NURSE TEDDY T VISIT PRACTITIO 15 NER GR MINUTES HOSPITAL UNIVERSIT - 5 5 Y [facility] T OFFICE 65759 GASTROENT CASE JUS CONSULTAT 5 5 EROLOGY ION AND NEW/ESTAB HEPATOL PATIENT 60 MIN HOSPITAL UNIVERSIT - 5 5 Y [facility] T OFFICE 91172 [facility] OUTPATIEN 5 5 NURSE TEDDY T VISIT PRACTITIO 25 NER GR MINUTES EMERGENCY 94588 ASHWIN Owen 5 5 DEPARTMEN T VISIT HIGH/URGE NT SEVERITY OFFICE 55845 [facility] OUTPATIEN 5 5 [facility] T VISIT MEDICAL 15 GROUP MINUTES OFFICE 65469 [facility] OUTPATIEN 5 5 NURSE TEDDY T VISIT PRACTITIO 15 NER GR MINUTES HOSPITAL [facility] - 5 5 GNOSTICISM OUTPATIEN HOSP T OFFICE 82255 [facility] ADRIAN II CONSULTAT 5 5 ADRIANZina HU MD NEW/ESTAB PATIENT 60 MIN [facility] - 5 5 GNOSTICISM OUTPATIEN HOSP T OFFICE 51678 GNOSTICISM FERRER OUTPATIEN 5 5 HEALTH GLORIA T NEW 45 MEDICAL MINUTES [facility] RICKIE - 5 5 MEM HOSP OUTPATIEN [facility] - 5 5 N OUTPATIEN COMMUNTIY T HOSPITA OFFICE 98642 [facility] OUTPATIEN 5 5 NURSE TEDDY T VISIT PRACTITIO 15 NER GR MINUTES [facility] - 5 5 N OUTPATIEN COMMUNTIY T HOSPITA OFFICE 86695 [facility] TRISHA CONSULTAT 5 5 N ION NEUROLOGY NEW/ESTAB PATIENT 60 MIN [facility] - 5 5 N OUTPATIEN [facility] HOSPITA OFFICE 49103 ARIA ROMERO OUTPATIEN 5 5 RENAL T VISIT CARE PSC 25 MINUTES [facility] - 4 4 N OUTPATIEN [facility] 02714 ARIA ROMERO OUTPATIEN 4 4 RENAL T NEW 60 CARE PSC MINUTES EMERGENCY 25309 MAYLIN CAROLINE 4 4 [facility] T VISIT HIGH/URGE NT SEVERITY [facility] 53198 KARRI SHORT OUTPATIEN 4 4 MEDICAL T VISIT SERV 25 FOUNDATIO MINUTES N OFFICE 65532 THAD ONEIL CONSULTAT 4 4 NEIL NEIL ION NEW/ESTAB PATIENT 40 MIN OFFICE 66061 KARRI TEJEDA-INDRA OUTPATIEN 4 4 MEDICAL KIN NANDINI T VISIT SERV 25 FOUNDATIO MINUTES N OFFICE 63676 [facility]RI TEJEDA-INDRA OUTPATIEN 4 4 MEDICAL KIN NANDINI T NEW 45 SERV MINUTES FOUNDATIO N
--- OUTSIDE RECORDS SUMMARY | 2017-04-04 13:03 | External Medical Summary Rpt | CCD ---
Demographics Preferred Language Qatari Marital Status Unknown Mosque Affiliation Unknown Race Unknown Ethnic Group Unknown Author Author , ROXANN HACKETT Address Unknown Phone Immunization No patient found.
--- OUTSIDE RECORDS SUMMARY | 2017-04-04 13:03 | External Medical Summary Rpt ---
Author Author ROXANN Mallory, ROXANN Production Organization [employer] Address Unknown Phone Unavailable
--- OUTSIDE RECORDS SUMMARY | 2017-04-04 13:03 | External Medical Summary Rpt | CCD ---
Demographics Preferred Language [place] Citizen Marital Status Unknown Mandaen Affiliation Unknown Race Unknown Ethnic Group Unknown Author Author , ROXANN HACKETT Address Unknown Phone Immunization No patient found.
--- OUTSIDE RECORDS SUMMARY | 2017-04-04 13:03 | External Medical Summary Rpt | CCD ---
Author Author , ROXANN Organization [employer] Address Unknown Phone [email or web address] Care Team Providers Care Cardiac Rehabilitation Specialist Name Role Phone TITI SHORT, TITI SHORT Unavailable Unavailable [facility] Unavailable Unavailable MEDICAL GROUP, [facility] ASHWIN L, ASHWIN L Unavailable Unavailable ASHWIN L, ASHWIN L Unavailable Unavailable [facility] Unavailable Unavailable [facility], [facility] JIM ALL, JIM ALL Unavailable Unavailable HILL NANDINI, HILL Unavailable Unavailable NANDINI CASE JUS, CASE JUS Unavailable Unavailable [facility], Unavailable Unavailable [facility], Unavailable Unavailable [facility] BELCHER, BELCHER Unavailable Unavailable BELCHER TEDDY, Unavailable Unavailable [facility] TEDDY JAZZ, JAZZ Unavailable Unavailable JAZZ CAR, JAZZ CAR Unavailable Unavailable ALEXANDRA SAMANTHA, Unavailable Unavailable ALEXANDRA SAMANTHA TEJEDA-RIOS NANDINI, Unavailable Unavailable [facility]RI[facility] NANDINI PAUL MAR, PAUL MAR Unavailable Unavailable [facility] Unavailable Unavailable HOSPITA, [facility] Unavailable [facility]available HOSPITA, [facility], Unavailable Unavailable [facility] DYLAN RHO, DYLAN Unavailable Unavailable RHO ARGUELLO JOE, ARGUELLO Unavailable Unavailable [facility] Unavailable Unavailable INC, [facility] QUIGLEY, QUIGLEY Unavailable Unavailable QUIGLEY, QUIGLEY Unavailable Unavailable QUIGLEY DEVON, QUIGLEY DEVON Unavailable Unavailable QUIGLEY DEVON, QUIGLEY DEVON Unavailable Unavailable [facility] Unavailable Unavailable GROUP PS, [facility] Unavailable Unavailable [facility], [facility] KERN LAR, KERN LAR [...] COCO CARVAJAL JAI, Unavailable Unavailable TILINDA JAI [facility] Unavailable Unavailable LLC, [facility], [facility], Unavailable Unavailable [facility] THAD TREJO, THAD Unavailable Unavailable NEIL TREJO, THAD Unavailable Unavailable NEIL ADRIAN II NEIL, ADRIAN Unavailable Unavailable II NEIL Purpose Continuity of Care Document - 01-28-2014 through 2016 Problems Code Diagnosis DOS Provider Status [id number] BENIGN 02-06-2017 [facility] UNSPECIFIED EAR R270 ATAXIA 02-06-2017 [facility] R42 DIZZINESS 02-06-2017 [facility] R51 HEADACHE 02-06-2017 [facility] M792 NEURALGIA 11-19-2016 [facility] NURSE AND PRACTITIONE NEURITIS R GR UNSPECIFIED N432 OTHER 10-29-2016 [facility] [place] [facility] N4340 SPERMATOCEL 10-29-2016 [facility] E OF COMMUNTIY EPIDIDYMIS HOSPITA UNSPECIFIED N5082 SCROTAL 10-29-2016 [facility] PAIN [facility] U69568 TESTICULAR 10-08-2016 [facility] NURSE PAIN PRACTITIONE UNSPECIFIED R GR N5089 OTHER 10-08-2016 [facility] NURSE SPECIFIED PRACTITIONE DISORDERS R GR OF MALE GENITAL ORGANS N509 DISORDER OF 10-08-2016 [facility] NURSE MALE PRACTITIONE GENITAL R GR ORGANS UNSPECIFIED R109 UNSPECIFIED 10-08-2016 [facility] NURSE ABDOMINAL PRACTITIONE PAIN R GR T148 OTHER 10-08-2016 [facility] NURSE INJURY OF PRACTITIONE UNSPECIFIED R GR BODY REGION Z789 OTHER 10-08-2016 [facility] NURSE SPECIFIED PRACTITIONE HEALTH R GR STATUS [id number] MIGRAINE 10-02-2016 [facility] W/AURA NOT SERV INTRACT W/O FOUNDATION STAT MIGRAINOSUS Q29193 CHRONIC 10-02-2016 [facility] TENSION-TYP SERV E HEADACHE [facility] NOT INTRACTABLE H6693 OTITIS 08-22-2016 [facility] NURSE MEDIA PRACTITIONE UNSPECIFIED R GR BILATERAL M542 CERVICALGIA 08-22-2016 [facility] NURSE PRACTITIONE R GR J209 ACUTE 06-27-2016 [facility] NURSE BRONCHITIS PRACTITIONE UNSPECIFIED R GR H524 PRESBYOPIA 06-04-2016 [facility] K37275 OTH 04-03-2016 [facility] MIGRAINE SERV NOT INTRACT FOUNDATION W/O STATUS MIGRAINOSUS I10 ESSENTIAL 03-21-2016 [facility] NURSE PRIMARY PRACTITIONE HYPERTENSIO R GR N K219 GASTRO-ESOP 12-28-2015 [facility] NURSE H REFLUX PRACTITIONE DISEASE R GR WITHOUT ESOPHAGITIS N508 OTHER 12-28-2015 [facility] NURSE SPECIFIED PRACTITIONE DISORDERS R GR OF MALE GENITAL ORGANS L58393 PAIN IN 11-06-2015 [facility] RIGHT KNEE COMM[facility]TIY HOSPITA R079 CHEST PAIN 11-06-2015 [facility] UNSPECIFIED COMMUNTIY HOSPITA N95300 PAIN IN 09-29-2015 [facility] NURSE LEFT UPPER PRACTITIONE ARM R GR L240 IRRITANT 09-05-2015 [facility] NURSE CONTACT PRACTITIONE DERMATITIS R GR DUE TO DETERGENTS J0190 ACUTE 08-01-2015 [facility] NURSE SINUSITIS PRACTITIONE UNSPECIFIED R GR [id number] STRAIN 08-01-2015 [facility] NURSE MUSCLE PRACTITIONE FASCIA & R GR TENDON LOW BACK INITIAL H6093 UNSPECIFIED 05-26-2015 [facility] OTITIS SERV EXTERNA FOUNDATION BILATERAL 71245 ATROPHIC 03-15-2015 [facility] WITHOUT MENTION OF HEMORRHAGE 5781 BLOOD IN 03-15-2015 [place] [address] ABDOMINAL 03-15-2015 [place] [facility], [facility]ESIA UNSPECIFIED GROUP PS SITE 57534 OTHER 03-13-2015 [facility] FATIGUE 2662 OTHER 03-01-2015 [facility] NURSE B-COMPLEX PRACTITIONE DEFICIENCIE R GR S 6089 UNSPECIFIED 02-08-2015 [facility] OF MALE GENITAL ORGANS 7804 DIZZINESS 02-08-2015 [facility] GIDDINESS V5869 LONG-TERM 02-08-2015 [facility] USE OF OTHER MEDICATIONS 77146 UNSPECIFIED 12-28-2014 ASHWIN Owen ORCHITIS AND EPIDIDYMITI S 42851 EDEMA OF 12-28-2014 [place] [facility] ORGANS 58172 OTHER 12-28-2014 [place] SPECIFIED MEDICAL DISORDER OF IMAGING ASS MALE GENITAL ORGANS 3484 COMPRESSION 12-21-2014 [facility] 47169 BENIGN 12-21-2014 [facility] 7820 DISTURBANCE 12-16-2014 [facility] 3674 PRESBYOPIA 12-13-2014 [facility] DEVON 3314 OBSTRUCTIVE 11-29-2014 [facility] 7812 ABNORMALITY 11-29-2014 [facility] V571 OTHER 11-10-2014 [facility] 25782 CHEST PAIN 10-28-2014 [facility] UNSPECIFIED RADIOLOGY 3688 OTHER 09-07-2014 [facility] SPECIFIED COMMUNTIY VISUAL HOSPITA DISTURBANCE S 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 UNSPECIFIED [facility] SITE 5718 OTHER 04-11-2014 [facility] NONALCOHOLI C LIVER DISEASE 23537 FLUSHING 04-06-2014 [facility] 57289 ESOPHAGEAL 02-22-2014 THAD NEIL REFLUX 7821 RASH AND 02-11-2014 [facility] OTHER DIAGNOSTICS NONSPECIFIC SKIN ERUPTION 2721 PURE 01-28-2014 [facility]YCER [facility] IDEMIA 4779 ALLERGIC 01-28-2014 [facility] RHINITIS SERV CAUSE [facility]OUNDATION UNSPECIFIED Medications [...] [place] 59 01 02 6. 5 00 [place] Ac IT 76 -0 -0 00 00 [...] [place] 00 12 01 10 5 00 OK [...] Procedures Procedure DOS Code Location Performer Comment 27902 [facility] [place] [facility]AL[facility] SCROTUM & 7 RADIOLOGY CONTENTS OPHTH 14403 [facility] 6 XM&EVAL COMPRHNSV ESTAB PT 1/> BINOCULAR 11399 [place] [facility] 6 MEDICAL BET MICROSCOP SERV Y FOUNDATIO SEPARATE N DX PROCEDURE CV STRS 71438 [facility] TST 6 N COCO XERS&/OR CARDIOLOG RX CONT Y ECG W/O I&R CV STRS 14829 [facility] TST 6 N N XERS&/OR COMMUNTIY COMMUNTIY RX CONT HOSPITA HOSPITA ECG TRCG ONLY RADIOLOGI 94653 [facility] [place] ARGUELLO C 6 RADIOLOGY JOE EXAMINATI ON KNEE 3 VIEWS CV STRS 82129 [facility] TST 6 N COCO XERS&/OR CARDIOLOG RX CONT Y ECG I&R ONLY ECG 02388 [facility]CH[facility] ROUTINE 6 NURSE TEDDY ECG PRACTITIO W/LEAST NER GR 12 LDS W/I&R ANES 05417 [place] JOES F ANT LOWER 5 ANESTHESI INTESTINE A GROUP PS ENDOSCOPY DISTAL DUODENUM COLONOSCO 52913 GASTROENT CASE JUS PY FLX DX 5 EROLOGY W/COLLJ [place] [address] [facility], SURG 5 [facility] PATHOLOGY GROSS&LEONIDES ROSCOPIC EXAM EGD 96748 GASTROENT CASE JUS TRANSORAL 5 EROLOGY BIOPSY AND SINGLE/MU HEPATOL LTIPLE CYANOCOBA 03325 [facility] VARUN 5 Y Y VITAMIN [facility]12 THERAPEUT 93081 [facility] NURSE NURSE PROPHYLAC PRACTITIO PRACTITIO TIC/DX NER GR NER GR INJECTION SUBQ/IM [place]ERAPE[place] 28863 [place] IC 5 MEDICAL MEDICAL PROPHYLAC SERV SERV TIC/DX FOUNDATIO FOUNDATIO INJECTION N N SUBQ/IM THERAPEUT 31538 [place] IC 5 MEDICAL NANDINI PROPHYLAC SERV TIC/DX FOUNDATIO INJECTION N SUBQ/IM THERAPEUT 49952 [facility] KMSF IC 5 NURSE NURSE PROPHYLAC PRACTITIO PRACTITIO TIC/DX NER GR NER GR INJECTION SUBQ/IM CYANOCOBA 91593 [facility] VARUN 5 Y Y [place]ITAMIN [place] [address] BASIC 71891 [facility] METABOLIC 5 Y Y PANEL [facility] CALCIUM TOTAL SEDIMENTA 22691 [facility] TION RATE 5 Y Y RBC [facility] AUTOMATED LIPID 75786 [facility] PANEL 5 Y Y [facility] HEMOGLOBI 71279 [facility] N 5 Y Y GLYCOSYLA [facility] REYMUNDO A1C BLOOD 19298 [facility] COUNT 5 Y Y COMPLETE [facility] AUTO&[place] [address] [facility] THYROID 5 Y Y STIMULATI [facility] [place] [address] [place] [facility] ALL SCROTUM & [address] [place] [address] [place] J[facility] ALL ABDOMEN & 5 MEDICAL PELVIS IMAGING W/O ASS CONTRAST MATERIAL NERVE 81383 [facility] CONDUCTIO 5 HEALTH JAI N STUDIES MEDICAL 5-6 GROUP STUDIES NEEDLE 21325 [facility] EMG EA 5 HEALTH JAI EXTREMTY MEDICAL W/PARASPI GROUP NL AREA COMPLETE OPHTH 74672 [facility] MEDICAL 5 XM&EVAL COMPRHNSV ESTAB PT 1/> MRI BRAIN 32338 [facility] N. BRAIN 5 RADIOLOGY STEM W/O ASSOC CONTRAST MATERIAL CYANOCOBA 50846 [facility] VARUN 5 EPISCOPALIAN EPISCOPALIAN VITAMIN HOSP HOSP B-12 [place] [address] [facility] THYROID 5 [facility] EP[facility] STIMULATI HOSP HOSP NG HORMONE TSH COLLECTIO 30543 [facility] N VENOUS 5 [facility]IAN EPISCOP[facility]IAN [place]LOOD [place] [address] [facility] FOLIC 5 EPISCOPALIAN EPISCOPALIAN [place] [address] [facility] FREE 5 EP[facility]IAN EPISCOP[facility] THYROXINE HOSP HOSP HEMOGLOBI 22284 [facility] N 5 EPISCOPALIAN EPISCOPALIAN GLYCOSYLA HOSP HOSP REYMUNDO A1C PHYSICAL 39080 [facility] DAMIAN THERAPY 5 [facility] [address] [facility] [place] [facility] HEAD/BRAI 5 RADIOLOGY RHO N W/O CONTRAST MATERIAL RADIOLOGI 31317 [facility] [place] C 5 RADIOLOGY RHO EXAMINATI ON CHEST SINGLE VIEW FRONTAL MRI BRAIN 46994 [facility] BRAIN 5 N N STEM W/O COMMUNTIY COMMUNTIY W/CONTRAS HOSPITA HOSPITA T MATERIAL INJECTION A9579 [facility] 5 N N GADOLINIU COMMUNTIY COMMUNTIY M BASED HOSPITA HOSPITA MR CONTRAST NOS ML RADIOLOGI 68461 [facility] [place] SCALF PAT C EXAM 5 RADIOLOGY CHEST 2 VIEWS FRONTAL&[place] [address] [facility] TESTOSTER 4 N N ONE TOTAL [facility] [address] [facility] ALDOSTERO 4 N N NE [facility] HOSPITA COLLECTIO 63279 [facility] N VENOUS 4 N N BLOOD [facility] VENIPUNCT HOSPITA HOSPITA URE METANEPHR 52304 [facility] MICHA 4 N N [facility] HOSPITA CATECHOLA 28950 [facility] MINES 4 N N FRACTIONA [facility] REYMUNDO HOSPITA HOSPITA CORTISOL 80991 [facility] FREE 4 N N [facility] [address] [facility] VANILLYLM 4 N N ANDELIC [facility] ACID HOSPITA HOSPITA URINE RADIOLOGI 64076 [place] ALEXAN[facility] C EXAM 4 MEDICAL SAMANTHA CHEST 2 IMAGING VIEWS ASS FRONTAL&L ATERAL METANEPHR 76562 [facility] MICHA 4 DIAGNOSTI DIAGNOSTI CS CS PHYSICAL 82467 [facility] THERAPY 4 N N EVALUATIO [facility] [address] [facility] PA[facility] MAR ABDOMINAL 4 RADIOLOGY REAL ASSOC TIME W/IMAGE DOCUMENTA TION BLOOD 56575 [facility] COUNT 4 DIAGNOSTI DIAGNOSTI COMPLETE CS CS AUTO&AUTO DIFRNTL WBC COMPREHEN 53319 [facility] SIVE 4 DIAGNOSTI DIAGNOSTI METABOLIC CS CS PANEL ACUTE 64291 [facility] HEPATITIS 4 DIAGNOSTI [place] [address] [facility] LIPASE [place] [address] [facility] AMYLASE 4 DIAGNOSTI DIAGNOSTI CS CS CALORIC 77429 DREW RUSSELL VESTIBULA 4 JULIA DUMONT R TEST EA IRRIGATIO N W/RECORD SPONTANEO 84601 DREW QUINONES 4 JULIA DUMONT NYSTAGMUS TEST PURE TONE 35448 DREW DUMONT AUDIOMETR Y AIR ONLY SPEECH 47760 DREW RUSSELL AUDIOMETR 4 JULIA DUMONT Y THRESHOLD SPEECH RECOGNIJ LARYNGOSC 40798 THAD ONEIL OPY 4 NEIL NEIL FLEXIBLE DIAGNOSTI C ANTIBODY 94844 [facility] HERPES 4 DIAGNOSTI DIAGNOSTI SMPLX CS CS TYPE 1 ANTIBODY 31669 [facility] HERPES 4 DIAGNOSTI DIAGNOSTI SMPLX CS CS TYPE 2 BLOOD 95614 [facility] COUNT 4 DIAGNOSTI DIAGNOSTI COMPLETE CS CS AUTOMATED LIPID 19519 [facility] PANEL 4 DIAGNOSTI DIAGNOSTI CS CS COMPREHEN 56304 [facility] SIVE 4 DIAGNOSTI DIAGNOSTI METABOLIC CS CS PANEL HEMOGLOBI 82123 [facility] N 4 DIAGNOSTI DIAGNOSTI GLYCOSYLA [place] [address] [facility] THYROID 4 DIAGNOSTI DIAGNOSTI STIMULATI CS CS NG HORMONE TSH Encounters Encounter Start End Date Code Location Performer Type Date OFFICE 06144 [facility]FF OUTPATIEN 7 7 MEDICAL T VISIT SERV 25 FOUNDATIO MINUTES HOSPITAL - 7 7 [facility] OUTPATIEN E T HOSPITALS OFFICE 02500 OUTPATIEN 7 7 [facility]ALTHCAR T VISIT 5 E MINUTES HOSPITALS OFFICE 61481 [facility] OUTPATIEN 7 7 NURSE T VISIT PRACTITIO 25 NER GR MINUTES [facility]PITAL [place] [address] 7 N OUTPATIEN COMMUNTIY T HOSPITA OFFICE 81928 [facility] CONSULTAT 7 7 MenuSpringO, [facility] ION NEW/ESTAB PATIENT 40 MIN OFFICE 04688 [facility] JAZZ OUTPATIEN 7 7 NURSE T VISIT PRACTITIO 25 NER GR MINUTES OFFICE 21930 K[facility]RI GOFF OUTPATIEN 7 7 MEDICAL T VISIT SERV 25 FOUNDATIO MINUTES N OFFICE 55224 [facility] JAZZ OUTPATIEN 7 7 NURSE T VISIT PRACTITIO 25 NER GR MINUTES OFFICE 15474 [facility] YE OUTPATIEN 7 7 NURSE T VISIT PRACTITIO 15 NER GR MINUTES OFFICE 28562 [place] OUTPATIEN 6 6 MEDICAL HUFNAGEL T VISIT SERV LAR 15 FOUNDATIO MINUTES N OFFICE 87343 [facility] OUTPATIEN 6 6 NURSE TEDDY T VISIT PRACTITIO 15 NER GR MINUTES OFFICE 60992 [place] [facility] OUTPATIEN 6 6 MEDICAL BET T NEW 30 SERV MINUTES FOUNDATIO N OFFICE 86145 [facility] OUTPATIEN 6 6 NURSE TEDDY T VISIT PRACTITIO 15 NER GR MINUTES OFFICE 48766 [facility] OUTPATIEN 6 6 NURSE TEDDY T VISIT PRACTITIO 15 NER GR MINUTES OFFICE 92179 E[facility], NOSE THAD OUTPATIEN 6 6 AND NEIL T VISIT THROAT 25 SPECIAL MINUTES OFFICE 15432 [facility] OUTPATIEN 6 6 NURSE TEDDY T VISIT PRACTITIO 15 NER GR MINUTES OFFICE 95245 [facility] OUTPATIEN 6 6 NURSE TEDDY T VISIT PRACTITIO 15 NER GR MINUTES HOSPITAL [facility] - 6 6 N OUTPATIEN COMMUNTIY T HOSPITA OFFICE 24839 [facility] BELCHER OUTPATIEN 6 6 NURSE TEDDY T VISIT PRACTITIO 15 NER GR MINUTES OFFICE 63850 [facility] JAZZ CAR OUTPATIEN 6 6 NURSE T VISIT PRACTITIO 15 NER GR MINUTES OFFICE 66326 [facility] JAZZ CAR OUTPATIEN 6 6 NURSE T VISIT PRACTITIO 15 NER GR MINUTES OFFICE 42725 [facility] JAZZ CAR OUTPATIEN 6 6 NURSE T VISIT PRACTITIO 15 NER GR MINUTES OFFICE 17950 [facility] OUTPATIEN 6 6 NURSE T VISIT PRACTITIO 15 NER GR MINUTES OFFICE 33008 [place] KERN LAR OUTPATIEN 5 5 MEDICAL T VISIT SERV 15 FOUNDATIO MINUTES N OFFICE 00356 [facility] BELCHER OUTPATIEN 5 5 NURSE TEDDY T VISIT PRACTITIO 15 NER GR MINUTES HOSPITAL UNIVERSIT - 5 5 Y [facility] T OFFICE 88459 GASTROENT CASE JUS CONSULTAT 5 5 EROLOGY ION AND NEW/ESTAB HEPATOL PATIENT 60 MIN HOSPITAL UNIVERSIT - 5 5 Y [facility] T OFFICE 10982 [facility] OUTPATIEN 5 5 NURSE TEDDY T VISIT PRACTITIO 25 NER GR MINUTES EMERGENCY 99588 ASHWIN Owen 5 5 DEPARTMEN T VISIT HIGH/URGE NT SEVERITY OFFICE 38430 [facility] OUTPATIEN 5 5 HEALTH GLORIA T VISIT MEDICAL 15 GROUP MINUTES OFFICE 09299 [facility] OUTPATIEN 5 5 NURSE TEDDY T VISIT PRACTITIO 15 NER GR MINUTES HOSPITAL CENTRAL - 5 5 EPISCOPALIAN OUTPATIEN HOSP T OFFICE 41774 [facility] ADRIAN II CONSULTAT 5 5 ADRIANZina HU MD NEW/ESTAB PATIENT 60 MIN HOSPITAL CENTRAL - 5 5 EPIS[facility]IAN OUTPATIEN HOSP T OFFICE 19629 [facility] F[facility] OUTPATIEN 5 5 HEALTH GLORIA T NEW 45 MEDICAL MINUTES [facility] - 5 5 MEM HOSP OUTPATIEN [facility] - 5 5 N OUTPATIEN COMMUNTIY T HOSPITA OFFICE 51756 [facility] OUTPATIEN 5 5 NURSE TEDDY T VISIT PRACTITIO 15 NER GR MINUTES HOSPITAL [facility] - 5 5 N OUTPATIEN COMMUNTIY T HOSPITA OFFICE 62455 [facility] TRISHA CONSULTAT 5 5 N ION NEUROLOGY NEW/ESTAB PATIENT 60 MIN HOSPITAL [facility] - 5 5 N OUTPATIEN [facility] HOSPITA OFFICE 62959 ARIA ROMERO OUTPATIEN 5 5 RENAL T VISIT CARE PSC 25 MINUTES [facility] - 4 4 N OUTPATIEN [facility] 62488 ARI[facility] ROMERO OUTPATIEN 4 4 RENAL T NEW 60 CARE PSC MINUTES EMERGENCY 27744 MAYLIN CAROLINE 4 4 MEDICAL [facility] T VISIT HIGH/URGE NT SEVERITY [facility] 26539 K[facility]RI SHORT OUTPATIEN 4 4 MEDICAL T VISIT SERV 25 FOUNDATIO MINUTES N OFFICE 02717 [facility]AD ONEIL CONSULTAT 4 4 NEIL NEIL ION NEW/ESTAB PATIENT 40 MIN OFFICE 50896 KARRI TEJEDA-INDRA OUTPATIEN 4 4 MEDICAL KIN NANDINI T VISIT SERV 25 FOUNDATIO MINUTES N OFFICE 41237 KARRI TEJEDA-INDRA OUTPATIEN 4 4 MEDICAL KIN NANDINI T NEW 45 SERV MINUTES FOUNDATIO N
== END ==
LOC: ER 10:03
DX: N45.1 Epididymitis (principal); Z88.0 Allergy status to penicillin; Z88.1 Allergy status to other antibiotic agents; F17.210 Nicotine dependence, cigarettes, uncomplicated